=== PATIENT | male | born 1965 | race Caucasian/White ===

== ENCOUNTER 2016-03-09 10:45 | Emergency (ER) | payer BC ==
[2016-03-09 10:55] VITALS: TEMP 96.8
--- NOTE | 2016-03-09 11:00 | ED.PDOC ---
History of Present Illness - General Chief Complaint: Laceration Stated Complaint: laceration Time Seen by Provider: 03/09/16 10:59 Source: patient, RN notes reviewed, Vital Signs reviewed Exam Limitations: no limitations - History of Present Illness Initial Comments: patient stated got up this morning quickly from his bed since right leg is cramping felt a little bit lightheaded fell and head hitting night stand causing laceration to forehead and right elbow abrasion.Denies loss of consciousness,remembers incident,no dizziness no vomiting no blurry vision,felt a little bit dazed. Timing/Duration: this morning Severity: moderate Location: face - forehead, extremities - abrasion right elbow Associated Symptoms: denies symptoms Allergies/Adverse Reactions: Allergies Ampicillin Allergy (Verified 03/09/16 10:55) Home Medications: Ambulatory Orders Carbamazepine 200 mg PO DAILY 03/09/16 Citalopram Hydrobromide 40 mg PO DAILY 03/09/16 Desonide 0.05 % EX BID PRN 03/09/16 Fluticasone Propionate (Nasal) [Fluticasone Propionate] 2 inh NA DAILY 03/09/16 Loratadine 10 mg PO DAILY 03/09/16 Obeticholic Acid [Ocaliva] 5 mg PO DAILY 03/09/16 Olopatadine HCl [Pataday] 1 drop BOTH_EYES DAILY 03/09/16 Tamsulosin [Flomax] 0.4 mg PO QD 03/09/16 Tramadol HCl 50 mg PO PRN PRN 03/09/16 Ursodiol 300 mg PO .NOON AND EVENING 03/09/16 Ursodiol 600 mg PO DAILY 03/09/16 Review of Systems - Review of Systems Constitutional: States: no symptoms reported EENTM: States: no symptoms reported Respiratory: States: no symptoms reported Cardiology: States: no symptoms reported Gastrointestinal/Abdominal: States: no symptoms reported Genitourinary: States: no symptoms reported Musculoskeletal: States: no symptoms reported Skin: States: other - laceration/abrasion Neurological: States: no symptoms reported Endocrine: States: no symptoms reported Hematologic/Lymphatic: States: no symptoms reported Past Medical History (General) - Patient Medical History Hx Other PMH: Yes - bipolar,TANESHA,mild primary sclerosing cholangitis /mild UC,bph Surgical History: cholecystectomy - laparoscopy,prostate/liver biopsy, tonsillectomy - colonoscopy - Vaccination History Hx Tetanus, Diphtheria Vaccination: Yes - given ed Hx Influenza Vaccination: Yes Hx Pneumococcal Vaccination: Yes - Social History Hx Tobacco Use: No Family Medical History - Family History Father Family History: Unknown Living Status: Unknown Hx Family;Other: LYMPHOMA Physical Exam - Physical Exam General Appearance: Alert, Comfortable, No apparent distress Eyes, Ears, Nose, Throat Exam: PERRL/EOMI, normal ENT inspection, TMs normal Neck: non-tender, full range of motion, supple, normal inspection Cardiovascular/Chest: normal peripheral pulses, regular rate, rhythm, no edema Respiratory: chest non-tender, lungs clear, normal breath sounds Gastrointestinal/Abdominal: non tender, soft, no organomegaly Back Exam: normal inspection, no CVA tenderness Extremity: non-tender, normal inspection Neurologic: no motor/sensory deficits, alert, normal mood/affect, oriented x 3, other - GCS-15 Skin Exam: warm/dry, normal color Skin Character: other - 3 cm deep laceration forehead and superficial skin abrasions right elbow Procedures - Laceration/Wound Repair Head Wound's Depth, Shape: into muscle, linear Wound Explored: clean Betadine Prep?: Yes Anesthesia: Lidocaine w/ Epi Volume Anesthetic (cc's): 7 Wound Repaired With: sutures Suture Size/Type: 6:0, 5:0, vicryl rapide, fast absorbing gut Layer Closure?: Yes Deep Layer Suture Size/Type: 5:0, vicryl rapide Number Deep Layer Sutures: 4 Sterile Dressing Applied?: Yes Departure - Departure Clinical Impression: Abrasion, elbow without infection, Fall from bumping against object as cause of accidental injury Laceration of right side of forehead with complication Qualifiers: Encounter type: initial encounter Qualifier Code: (S01.81XA) Laceration without foreign body of other part of head, initial encounter Time of Disposition: 12:07 Disposition: Discharge to Home or Self Care Condition: Good Departure Forms: ED Discharge - Pt. Copy, Patient Portal Self Enrollment Instructions: DI for Closed Head Injury Referrals: Chaz Zhang MD [Primary Care Provider] - 1-2 Weeks Home Medications: Ambulatory Orders Carbamazepine 200 mg PO DAILY 03/09/16 Citalopram Hydrobromide 40 mg PO DAILY 03/09/16 Desonide 0.05 % EX BID PRN 03/09/16 Fluticasone Propionate (Nasal) [Fluticasone Propionate] 2 inh NA DAILY 03/09/16 Loratadine 10 mg PO DAILY 03/09/16 Obeticholic Acid [Ocaliva] 5 mg PO DAILY 03/09/16 Olopatadine HCl [Pataday] 1 drop BOTH_EYES DAILY 03/09/16 Tamsulosin [Flomax] 0.4 mg PO QD 03/09/16 Tramadol HCl 50 mg PO PRN PRN 03/09/16 Ursodiol 300 mg PO .NOON AND EVENING 03/09/16 Ursodiol 600 mg PO DAILY 03/09/16 Additional Instructions: RETURN TO EMERGENCY ROOM NEEDED
[2016-03-09] MEDS ORDERED: LIDOCAINE 2% W/ EPINEPHRINE 20 ML VIAL INJ ONE (11:05)
[2016-03-09] MEDS ORDERED: NEOMYCIN-BACITRACIN-POLYMYXIN 0.9 GM UD TOP ONE (11:11)
[2016-03-09] MEDS ORDERED: TETANUS,DIPHTHERIA,PERTUSSIS 1 EA SYG IM ONE (11:29)
[2016-03-09 12:29] VITALS: BP 129/77; O2SAT 100
== END 2016-03-09 12:27 | disposition home or self-care (01) ==
LOC: ER 10:45
DX: S01.81XA Laceration without foreign body of other part of head, initial encounter (principal); F31.9 Bipolar disorder, unspecified; Z88.3 Allergy status to other anti-infective agents; Z23 Encounter for immunization; Z79.899 Other long term (current) drug therapy; W08.XXXA Fall from other furniture, initial encounter; Y92.003 Bedroom of unspecified non-institutional (private) residence as the place of occurrence of the external cause

== ENCOUNTER 2016-04-03 13:54 | Emergency (ER) | payer BC ==
[2016-04-03 14:17] VITALS: TEMP 98.5
--- NOTE | 2016-04-03 14:28 | ED.PDOC ---
History of Present Illness - General Chief Complaint: GI Problem Stated Complaint: blood in stool Time Seen by Provider: 04/03/16 14:24 - History of Present Illness Allergies/Adverse Reactions: Allergies Ampicillin Allergy (Verified 04/03/16 14:17) Home Medications: Ambulatory Orders Carbamazepine 200 mg PO DAILY 03/09/16 Citalopram Hydrobromide 40 mg PO DAILY 03/09/16 Desonide 0.05 % EX BID PRN 03/09/16 Fluticasone Propionate (Nasal) [Fluticasone Propionate] 2 inh NA DAILY 03/09/16 Loratadine 10 mg PO DAILY 03/09/16 Obeticholic Acid [Ocaliva] 5 mg PO DAILY 03/09/16 Olopatadine HCl [Pataday] 1 drop BOTH_EYES DAILY 03/09/16 Tamsulosin [Flomax] 0.4 mg PO QD 03/09/16 Tramadol HCl 50 mg PO PRN PRN 03/09/16 Ursodiol 300 mg PO .NOON AND EVENING 03/09/16 Ursodiol 600 mg PO DAILY 03/09/16 Past Medical History (General) - Patient Medical History Hx Gastroesophageal Reflux: No - PSC with ulcerative colitis Surgical History: cholecystectomy, tonsillectomy - Vaccination History Hx Tetanus, Diphtheria Vaccination: Yes Hx Influenza Vaccination: Yes Hx Pneumococcal Vaccination: Yes - Social History Hx Tobacco Use: No Hx Alcohol Use: No Hx Substance Use Treatment: No Hx Depression: Yes - Activities of Daily Living Hospice Agency (if applicable):: None - Female History Patient is a Female of Child Bearing Age (10 -59 yrs old): No Patient : No Family Medical History - Family History Father Family History: Unknown Living Status: Unknown Hx Family;Other: LYMPHOMA Progress - Progress Progress: 04/03/16 18:20 HEMATEMESIS, MELENA, EXTENSIVE VARICES PER CT. HGB 7.2. KNOWN H/O PRIMARY SCLEROSING CHOLANGITIS. I SPOKE WITH THE HOSPITALIST HERE WHO TALKED WITH PT'S PCP WHO IS VERY FAMILIAR WITH THE PT'S HX AND THOUGH HE IS CURRENTLY HEMODYNAMICALLY STABLE, HE COULD QUICKLY DECOMPENSATE THUS TO TRANSFER BY HELICOPTER. I SPOKE WITH DR. FELIZ FROM [facility] WHO KINDLY ACCEPTED TRANSFER. Departure - Departure Clinical Impression: Melena, Hematemesis, Gastric varices, Anemia Disposition: Discharge to Home or Self Care Departure Forms: ED Discharge - Pt. Copy, Patient Portal Self Enrollment Home Medications: Ambulatory Orders Carbamazepine 200 mg PO DAILY 03/09/16 Citalopram Hydrobromide 40 mg PO DAILY 03/09/16 Desonide 0.05 % EX BID PRN 03/09/16 Fluticasone Propionate (Nasal) [Fluticasone Propionate] 2 inh NA DAILY 03/09/16 Loratadine 10 mg PO DAILY 03/09/16 Obeticholic Acid [Ocaliva] 5 mg PO DAILY 03/09/16 Olopatadine HCl [Pataday] 1 drop BOTH_EYES DAILY 03/09/16 Tamsulosin [Flomax] 0.4 mg PO QD 03/09/16 Tramadol HCl 50 mg PO PRN PRN 03/09/16 Ursodiol 300 mg PO .NOON AND EVENING 03/09/16 Ursodiol 600 mg PO DAILY 03/09/16 Transfer to Outside Facility - Transfer Information Accepting Provider:: Dr. Feliz Accepting Facility: [facility] Reason for Transfer: required specialist not available
[2016-04-03 18:26] VITALS: BP 110/61; O2SAT 98
--- NOTE | 2016-05-01 23:48 | CT ---
NAME: WILFREDO MORALESPROCEDURE: CT ABDOMEN PELVIS WITHOUT IV CONTRASTORDER DATE: 04/03/2016 3:06 PM CSTACCESSION NUMBER: [id number] Clinical History: HEMATEMESIS, BLACK STOOLS, ANEMIA. Indication: Same as above Comparison: None Technique: CT of the abdomen and pelvis was done without intravenous contrast. Images were obtained from the lung base to the level of the pubic symphysis in axial plane, followed by orthogonal sagittal and coronal reconstruction. Oral contrast was not given for the study. Findings: Images through the lung bases show small right-sided pleural effusion and a small hiatal hernia. The liver is shrunken and nodular in appearance suggestive of underlying cirrhotic changes. There is splenomegaly with the spleen measuring 17 cm in length. There is presence of extensive perihepatic, periportal, pericecal gastric, peripancreatic and perisplenic varices. Varices are also seen in the anterior subcutaneous fat planes of the abdomen and the pelvis. The prostate is mildly enlarged. There is generalized mild mesenteric edema. There is minimal subhepatic ascites. The main portal vein is significantly enlarged and may represent cavernous transformation of the portal vein The pancreas and the bilateral adrenal glands appear unremarkable, given the limitation of lack of intravenous contrast. The gallbladder is surgically absent The bilateral kidneys do not show any evidence of hydronephrosis or nephrolithiasis. The bilateral ureters and the bilateral periureteral soft tissues and fat planes are unremarkable. The urinary bladder is unremarkable, without any evidence of wall thickening, calculi or filling defects. The small bowel appears unremarkable, without any evidence of small bowel obstruction or bowel wall thickening. There is no CT evidence of acute appendicitis, pericecal inflammatory change or ileocecal mesenteric adenitis. The ileocecal junction appears unremarkable. There is no CT evidence of acute colonic diverticulitis or colitis or large bowel obstruction. There is no pathological lymphadenopathy in the retroperitoneum or in the pelvic region. There is no evidence of free air in the abdomen or the pelvic region. There is no clinically significant abdominal aortic aneurysm. There is no clinically significant inguinal or ventral hernia. The visualized lumbar spine shows multilevel degenerative change. The paravertebral soft tissues are unremarkable. The remainder of the pelvic structures are unremarkable. Impression: Images through the lung bases show small right-sided pleural effusion and a small hiatal hernia. The liver is shrunken and nodular in appearance suggestive of underlying cirrhotic changes. There is splenomegaly with the spleen measuring 17 cm in length. There is presence of extensive perihepatic, periportal, pericecal gastric, peripancreatic and perisplenic varices. Varices are also seen in the anterior subcutaneous fat planes of the abdomen and the pelvis. The main portal vein is significantly enlarged and may represent cavernous transformation of the portal vein The prostate is mildly enlarged. There is generalized mild mesenteric edema and minimal subhepatic ascites Location of Interpretation: [facility] Electronically signed by: Deangelo Buckley MD 04/03/2016 3:43 PM DRUM DYEING MACHINE OPERATOR
== END 2016-04-03 19:03 | disposition home or self-care (01) ==
LOC: ER 13:54
DX: I86.4 Gastric varices (principal); K92.1 Melena; D64.9 Anemia, unspecified; K92.0 Hematemesis; F32.9 Major depressive disorder, single episode, unspecified; Z88.3 Allergy status to other anti-infective agents; Z79.899 Other long term (current) drug therapy

== ENCOUNTER 2016-04-15 18:06 | Emergency (ER) | payer BC ==
[2016-04-15 18:24] VITALS: TEMP 98.4
--- NOTE | 2016-04-15 18:25 | ED.PDOC ---
History of Present Illness - General Chief Complaint: Cardiovascular Problem Stated Complaint: swelling in legs and feet Time Seen by Provider: 04/15/16 18:15 Source: patient, RN notes reviewed, Vital Signs reviewed Exam Limitations: no limitations - History of Present Illness Initial Comments: Patient reports that 2 days ago he started with ankle swelling and SOB. Not worsening but not improving. + cough. He was recently hospitalized for esophageal varices with a banding procedure. Denies chest pain. No similar episodes in past. Timing/Duration: constant, other - 2 days Severity: moderate Location: other - SOB/ankle swelling Activities at Onset: none Prior Chest Pain/Cardiac Workup: no prior chest pain Improving Factors: nothing Worsening Factors: nothing Nitro Today/Relief: no nitro taken today Aspirin Treatment Today: no aspirin today Associated Symptoms: cough, shortness of breath Allergies/Adverse Reactions: Allergies Ampicillin Allergy (Verified 04/03/16 14:17) Home Medications: Ambulatory Orders Citalopram Hydrobromide 40 mg PO DAILY 03/09/16 Loratadine 10 mg PO DAILY 03/09/16 Obeticholic Acid [Ocaliva] 5 mg PO DAILY 03/09/16 Olopatadine HCl [Pataday] 1 drop BOTH_EYES DAILY 03/09/16 Tamsulosin [Flomax] 0.4 mg PO QD 03/09/16 Tramadol HCl 50 mg PO PRN PRN 03/09/16 Ursodiol 300 mg PO .NOON AND EVENING 03/09/16 Ursodiol 600 mg PO DAILY 03/09/16 Pantoprazole Sodium [Protonix] 40 mg PO DAILY 04/15/16 Propranolol HCl 20 mg PO BID 04/15/16 Review of Systems - Review of Systems Constitutional: Denies: chills, diaphoresis, fever, malaise, weakness EENTM: States: no symptoms reported Respiratory: States: cough, short of breath. Denies: stridor, wheezing Cardiology: States: edema. Denies: chest pain, palpitations, syncope Gastrointestinal/Abdominal: States: no symptoms reported Genitourinary: States: no symptoms reported Musculoskeletal: States: no symptoms reported Skin: States: no symptoms reported Neurological: States: no symptoms reported Endocrine: States: no symptoms reported Past Medical History (General) - Patient Medical History Hx Gastroesophageal Reflux: No - PSC with ulcerative colitis - Vaccination History Hx Tetanus, Diphtheria Vaccination: Yes Hx Influenza Vaccination: Yes Hx Pneumococcal Vaccination: Yes - Social History Hx Tobacco Use: No Hx Alcohol Use: No Hx Substance Use Treatment: No Hx Depression: Yes - Female History Patient : No Family Medical History - Family History Father Family History: Unknown Living Status: Unknown Hx Family;Other: LYMPHOMA Physical Exam - Physical Exam General Appearance: Alert, Comfortable, No apparent distress, Well Developed, Well Groomed, Well Hydrated, Well Nourished Neck: non-tender, full range of motion, supple, normal inspection Respiratory: no respiratory distress, no accessory muscle use, decreased breath sounds - Right lung Cardiovascular/Chest: regular rate, rhythm, no gallop, no JVD, no murmur, other - 2+ pitting edema Bilateral LE Peripheral Pulses: dorsalis pedis,right: 2+, dorsalis pedis,left: 2+ Gastrointestinal/Abdominal: distended Extremity: normal range of motion, non-tender, pedal edema Neurologic: no motor/sensory deficits, alert, normal mood/affect, oriented x 3 Skin Exam: normal color, warm/dry Lymphatic: no adenopathy Progress - Progress Progress: 04/15/16 20:47 Discussed lab and radiology results with patient. Discussed that lower extremity edema is most likely due to his chronic liver disease. No cause for his SOB found. Recommended Elevating legs - if not improving in 2 weeks or if worsening follow up with PCP. - Results/Orders Results/Orders: Laboratory Tests 04/15/16 18:45 WBC 3.5 L RBC 3.26 L Hgb 9.4 L Hct 28.8 L MCV 88.6 MCH 28.8 MCHC 32.7 L RDW 15.0 H Plt Count 113 L MPV 9.5 Absolute Neuts (auto) 2.30 Absolute Lymphs (auto) 0.90 L Absolute Monos (auto) 0.30 Absolute Eos (auto) 0.00 Absolute Basos (auto) 0.00 Neutrophils % 64.9 Lymphocytes % 26.0 Monocytes % 7.5 Eosinophils % 1.1 Basophils % 0.5 D-Dimer, Quantitative 401 H* Sodium 139 Potassium 4.0 Chloride 109 Carbon Dioxide 28 Anion Gap 6.0 L BUN 11 Creatinine 0.57 L BUN/Creatinine Ratio 19.3 Random Glucose 108 H Serum Osmolality 277.5 Calcium 8.2 L Total Bilirubin 1.8 H AST 90 H ALT 98 H Alkaline Phosphatase 456 H Creatine Kinase 60 Serum Total Protein 6.4 Albumin 2.5 L Globulin 3.9 H Albumin/Globulin Ratio 0.6 L Labs either improved or unchanged from prior visit. - EKG/XRAY/CT EKG: Sinus, no ST T wave changes Comments: Normal EKG, Rate 65 CT Ordered: Yes - CTA Chest - R/O PE CT Interpretation Call Back: - No evidence of PE per radiology Departure - Departure Clinical Impression: Edema extremities, Cirrhosis of liver, Ascites Time of Disposition: 20:49 Disposition: Discharge to Home or Self Care Condition: Good Departure Forms: ED Discharge - Pt. Copy, Patient Portal Self Enrollment Diet: resume usual diet Activity: increase activity as tolerated Home Medications: Ambulatory Orders Citalopram Hydrobromide 40 mg PO DAILY 03/09/16 Loratadine 10 mg PO DAILY 03/09/16 Obeticholic Acid [Ocaliva] 5 mg PO DAILY 03/09/16 Olopatadine HCl [Pataday] 1 drop BOTH_EYES DAILY 03/09/16 Tamsulosin [Flomax] 0.4 mg PO QD 03/09/16 Tramadol HCl 50 mg PO PRN PRN 03/09/16 Ursodiol 300 mg PO .NOON AND EVENING 03/09/16 Ursodiol 600 mg PO DAILY 03/09/16 Pantoprazole Sodium [Protonix] 40 mg PO DAILY 04/15/16 Propranolol HCl 20 mg PO BID 04/15/16
[2016-04-15 20:56] VITALS: BP 122/70; O2SAT 98
--- NOTE | 2016-04-27 13:44 | CT ---
EXAM: CT CHEST ANGIOGRAPHY WITH IV CONTRAST HISTORY: SOB with elevated D-Dimer/ R/O PE COMPARISON: None Available TECHNIQUE: Contiguous axial images of the chest were obtained from the thoracic inlet to the level of the upper abdomen after the administration of intravenous contrast followed by reconstruction images. Volume rendering images were performed. FINDINGS: The aorta is of normal contour and tapering. There is no discrete filling defect within the pulmonary arterial system to suggest pulmonary emboli. There is no pericardial or pleural fluid collection. There is a bulla within the right lung. Increased opacity within the dependent portion of the lungs may represent atelectasis. There are bilateral pleural fluid collections, right greater than left. There is a small amount of fluid within the superior pericardial recess. The right hepatic parenchyma is nodular in contour and small in size compatible with cirrhosis. There is free fluid in the upper abdomen. The spleen is enlarged measuring approximately 17.1 cm compatible with portal hypertension. There is no pneumothorax. IMPRESSION: No CT evidence of acute pulmonary emboli. Findings compatible with cirrhosis with portal hypertension. Ascites. Bilateral small pleural fluid collections. Increased opacity in the dependent portion of the lungs compatible atelectasis. Electronically signed by: Juan Mcarthur MD 04/15/2016 8:25 PM BIOPROCESSING MANUFACTURING TECHNICIAN
--- NOTE | 2016-05-02 08:55 | RAD ---
EXAM DESCRIPTION: Chest,2 Views CLINICAL HISTORY: 50 years Male SOB Edema COMPARISON: CT abdomen and pelvis study from 03/26/2016. FINDINGS: There is a small right pleural effusion. Small right pleural effusion is also visualized on the previous CT abdomen and pelvis study. The lungs otherwise appear clear. No pneumothorax. The cardiomediastinal silhouette appears unremarkable. Degenerative changes in the spine. IMPRESSION: Small right pleural effusion which appears similar compared to the previous CT abdomen and pelvis study. Electronically signed by: David Tran MD 04/15/2016 6:42 PM ENVIRONMENTAL ANALYST
== END 2016-04-15 20:57 | disposition home or self-care (01) ==
LOC: ER 18:06
DX: R18.8 Other ascites (principal); K74.60 Unspecified cirrhosis of liver; F32.9 Major depressive disorder, single episode, unspecified; Z88.3 Allergy status to other anti-infective agents; Z79.899 Other long term (current) drug therapy

== ENCOUNTER → 2016-05-09 | Outpatient (CLI) | payer BC | END | disposition home or self-care (01) | LOC: GMAJ 10:27 | PROVIDERS: ATTEND Family Medicine | DX: K74.69 Other cirrhosis of liver (principal) ==

== ENCOUNTER → 2016-07-06 | Outpatient (CLI) | payer BC | LOC: LAB.O 14:24 | PROVIDERS: ATTEND Urology | DX: R97.20 Elevated prostate specific antigen [PSA] (principal) ==

== ENCOUNTER 2016-10-12 00:29 | Inpatient (IN) | payer BC ==
--- NOTE | 2016-10-12 00:44 | ED.PDOC ---
History of Present Illness - General Chief Complaint: Neuro Symptoms/Deficits Stated Complaint: confusion, fever Time Seen by Provider: 10/12/16 00:38 Source: patient Exam Limitations: clinical condition Additional Information: PT BROUGHT IN BY EMS. APPARENTLY MOM CALLED FROM [place] B/C SHE COULD NOT REACH PT. PD FOUND PT SITTING ON HIS FRONT PORCH CONFUSED. EMS CALLED AND TRANSPORTED PT HERE. HAS CONFUSION AND FEVER. MOM LASTED TALKED TO PT MONDAY WAS REPORTEDLY HAVING DIARRHEA. - History of Present Illness Timing/Duration: unsure Severity: moderate Associated Symptoms: other - HISTORY AND ROS IS OTHERWISE UNRELIABLE. PMHX OBTAINED FROM OLD RECORDS AND MEDS. Allergies/Adverse Reactions: Allergies Ampicillin Allergy (Verified 04/03/16 14:17) Home Medications: Ambulatory Orders Obeticholic Acid [Ocaliva] 5 mg PO DAILY 03/09/16 Olopatadine HCl [Pataday] 1 drop BOTH_EYES DAILY 03/09/16 RX: Citalopram Hydrobromide 40 mg PO DAILY 03/09/16 RX: Loratadine 10 mg PO DAILY 03/09/16 RX: Tramadol HCl 50 mg PO PRN PRN 03/09/16 RX: Ursodiol 300 mg PO .NOON AND EVENING 03/09/16 RX: Ursodiol 600 mg PO DAILY 03/09/16 Tamsulosin [Flomax] 0.4 mg PO QD 03/09/16 Pantoprazole Tablet [Protonix] 40 mg PO DAILY 04/15/16 RX: Propranolol HCl 20 mg PO BID 04/15/16 Carbamazepine ER [Carbatrol] 200 mg PO 10/12/16 RX: Citalopram Hydrobromide 40 mg PO 10/12/16 RX: Sertraline HCl 50 mg PO 10/12/16 Review of Systems - Review of Systems Unable to Obtain Due To: clinical condition Past Medical History (General) - Patient Medical History Hx Hypertension: Yes Hx Gastroesophageal Reflux: No - PSC with ulcerative colitis ?END STAGE LIVER DZ - Vaccination History Hx Tetanus, Diphtheria Vaccination: Yes Hx Influenza Vaccination: Yes Hx Pneumococcal Vaccination: Yes - Social History Hx Tobacco Use: No Hx Alcohol Use: No Hx Substance Use Treatment: No Hx Depression: Yes - Female History Patient : No Family Medical History - Family History Father Family History: Unknown Living Status: Unknown Hx Family;Other: LYMPHOMA Physical Exam - Physical Exam General Appearance: Alert, Other - CONFUSED Eye Exam: bilateral scleral icterus, bilateral other - PERRLA EOMI Ears, Nose, Throat: hearing grossly normal, normal ENT inspection, other - DRY MUCOUS MEMBRANES Neck: non-tender, full range of motion, supple Respiratory: lungs clear, normal breath sounds, no respiratory distress Cardiovascular/Chest: no murmur, tachycardia Gastrointestinal/Abdominal: soft, no organomegaly, other - DIFFUSELY TTP WITH MOD RUQ TTP. NO HSM, HYPOACTIVE BS. Back Exam: normal inspection, no CVA tenderness, no vertebral tenderness Extremity: normal range of motion, normal inspection, no pedal edema Neurologic: no motor/sensory deficits, alert, other - ORIENTED X 1 (PERSON ONLY) Skin Exam: diaphoresis, rash - HOT TO TOUCH Lymphatic: no adenopathy Progress - Progress Progress: 10/12/16 01:26 WAS ABLE TO REVIEW RECORDS FROM [facility] FROM 03/22. WAS ADMITTED FOR ESOPHAGEAL VARICIES WITH BLEEDING. RECORDS DOCUMENT PRIMARY SCLEROSING CHOLANGITIS. ULCERATIVE CHOLITIS, BIPOLAR D/O, AND BPH. LAB, 04/06/16 WBC 2.6, HGB 8.3, PLT 90, 04/04/16 WBC 2.1 HGB 7.9, PLT 81 NA 135, K 3.4, CL 108, CO2 22, GLU 84, BUN/CR 11/.53, LFT'S 04/03/16, AST 212, ALT 190, TBILI 1.6, ALK PHOS 333 10/12/16 02:56 PT WITH RLL PNEUMONIA AND SEPSIS, D/W [facility] TRANSFER LINE THEY ARE CURRENTLY FULL RECOMMEND WE HOLD HERE UNTIL THEY GET A BED. WILL START ROCEPHIN AND ZITHROMAX AND D/W HOSPITALIST. 10/12/16 03:00 D/W DR MONTANEZ AGREES TO ADMIT PT HERE. - EKG/XRAY/CT XRAY: chest - RLL PNEUMONIA CT Ordered: Yes - NEG PER RADIOLOGY Departure - Departure Clinical Impression: Shock Pneumonia Qualifiers: Pneumonia type: due to Pneumococcus Laterality: right Lung location: lower lobe of lung Qualified Code(s): J13 - Pneumonia due to Streptococcus pneumoniae Sepsis Qualifiers: Sepsis type: Pneumococcus Qualified Code(s): A40.3 - Sepsis due to Streptococcus pneumoniae Time of Disposition: 03:00 Disposition: Admit Patient Condition: Fair Departure Forms: ED Discharge - Pt. Copy, Patient Portal Self Enrollment Referrals: Chaz Zhang MD [Primary Care Provider] - 1-2 Weeks Home Medications: Ambulatory Orders Obeticholic Acid [Ocaliva] 5 mg PO DAILY 03/09/16 Olopatadine HCl [Pataday] 1 drop BOTH_EYES DAILY 03/09/16 RX: Citalopram Hydrobromide 40 mg PO DAILY 03/09/16 RX: Loratadine 10 mg PO DAILY 03/09/16 RX: Tramadol HCl 50 mg PO PRN PRN 03/09/16 RX: Ursodiol 300 mg PO .NOON AND EVENING 03/09/16 RX: Ursodiol 600 mg PO DAILY 03/09/16 Tamsulosin [Flomax] 0.4 mg PO QD 03/09/16 Pantoprazole Tablet [Protonix] 40 mg PO DAILY 04/15/16 RX: Propranolol HCl 20 mg PO BID 04/15/16 Carbamazepine ER [Carbatrol] 200 mg PO 10/12/16 RX: Citalopram Hydrobromide 40 mg PO 10/12/16 RX: Sertraline HCl 50 mg PO 10/12/16
[2016-10-12] MEDS ORDERED: SODIUM CHLORIDE 0.9% 1000ML 1,000 ML IVS ONE ×3 (00:55→16:06)
--- NOTE | 2016-10-12 01:15 | CT ---
EXAM: CT head without contrast. INDICATION: AMS. TECHNIQUE: Contiguous axial CT images of the brain. Intravenous contrast: Absent. DLP 773 mGy-cm. This exam was performed according to our departmental dose-optimization program, which includes automated exposure control, adjustment of the mA and/or kV according to patient size and/or use of iterative reconstruction technique. COMPARISON: None. FINDINGS: Subcutaneous: Unremarkable. No acute intracranial hemorrhage. No midline shift. No mass effect. Ventricles: No hydrocephalus. Suarez-white differentiation preserved. Paranasal sinuses/mastoid air cells: Visualized portions are aerated. Bones/orbits: Visualized portions are unremarkable. IMPRESSION: 1. No CT evidence of acute intracranial hemorrhage. Electronically signed by: Yoshi Caballero MD 10/12/2016 1:14 AM CDT Workstation: [id number]
--- NOTE | 2016-10-12 01:22 | RAD ---
EXAM: Single view chest. INDICATION: Fever. COMPARISON: Chest x-ray: 04/15/2016. FINDINGS: There is a right basilar airspace opacities or pleural effusion. The left lung is clear. The heart is normal in size. There is no pneumothorax. There is no acute fracture. IMPRESSION: Right basilar airspace opacity with right pleural effusion Electronically signed by: Yoshi Caballero MD 10/12/2016 1:21 AM CDT Workstation: [id number]
[2016-10-12] MEDS ORDERED: cefTRIAXone SODIUM 1 GM in SODIUM CHL 0.9% 50ML MIN-BAG+ 50 ML IVPB ONE (02:48)
[2016-10-12] MEDS ORDERED: AZITHROMYCIN IV 500 MG in SODIUM CHLORIDE 0.9% 250ML 250 ML IVPB ONE (02:48)
[2016-10-12] MEDS ORDERED: AZITHROMYCIN IV 500 MG VIAL IVPB ONE (02:51)
[2016-10-12] MEDS ORDERED: cefTRIAXone SODIUM 1 GM VIAL ONE ×2 (02:51→07:33)
[2016-10-12] MEDS ORDERED: SODIUM CHLORIDE 0.9% 250ML 250 ML ONE (02:52)
[2016-10-12] MEDS ORDERED: SODIUM CHL 0.9% 50ML MIN-BAG+ 50 ML IVPB ONE ×4 (02:52→20:27)
[2016-10-12] MEDS ORDERED: SODIUM CHLORIDE 0.9% 1000ML 1,000 ML ONE (03:10)
[2016-10-12] MEDS ORDERED: LEVALBUTEROL NEBS 1.25 MG/3 ML VIAL NEB PRN (03:44)
[2016-10-12] MEDS ORDERED: ONDANSETRON INJ 4 MG/2 ML VIAL IV PRN (03:44)
[2016-10-12] MEDS ORDERED: MAGNESIUM HYDROXIDE 30 ML UD PO PRN (03:44)
--- NOTE | 2016-10-12 03:53 | HP ---
SUPERVISING PHYSICIAN: Chaz Zhang MD CHIEF COMPLAINT: Confusion, fever. HISTORY OF PRESENT ILLNESS: Mr. Camacho is a 51-year-old, male patient who was brought to the Emergency Department via EMS. The patient was found to be confused at home after his mother had called and could not reach the patient as she was out of town. Ambulance was called and on arrival to the patient's house, the patient was noted to be confused and have shortness of breath . He was transported to the Emergency Room where he was noted to be having confusion with an elevated temperature initially with 102.2 temperature on arrival. It was noted in the Emergency Room record that his mother had last talked to the patient this past Monday and he was reportedly having some diarrhea at that time. Laboratory studies in the Emergency Department showed that he had normal white count of 10.3 with a notable left shift. Radiographic studies included a chest x-ray and per radiologic interpretation showed right basilar airspace opacity with pleural effusion. He also had a CT of the head for evaluation of his confusion and per radiologic interpretation there was no CT evidence of acute intracranial hemorrhage. 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 Chemistries in the Emergency Department showed his total bilirubin t be 4.5, lactic acid was 2.4. Dr. Feliz , ER physician, attempted to transfer the patient for developing left lower lobe pneumonia with sepsis complicated by endstage liver disease to [facility] as he is followed by Dr. Birch. However, at the point of contact this morning, [facility] had no beds available. Recommendations were to hold the patient in the Emergency Room or admit to the Hospital and wait until a bed was available at [facility]. The patient was then at that point admitted to the Medical/Surgical Floor for continuation of treatment. Blood cultures were collected. He was initiated on antibiotic therapy to include Rocephin and azithromycin. PAST MEDICAL HISTORY: 1. Autoimmune primary sclerosing cholangitis. 2. Ulcerative colitis. 3. History of past esophageal varices requiring banding in June of 2016. 4. Gastroesophageal reflux disease on Protonix. 5. Benign prostatic hypertrophy. PAST SURGICAL HISTORY: 1. Cholecystectomy. 2. Tonsillectomy. 3. Laryngeal cord nodule removal. 4. Biopsy of prostate in 2009, benign. 5. Multiple liver biopsies. 6. Colonoscopies with last colonoscopy noted per record review to be 05/19/16. 7. EGD with esophageal varices and banding on 07/11/16. HOME MEDICATIONS: 1. Sertraline 50 mg daily. 2. Tramadol 1 to 2 mg q.12h. p.r.n. 3. Protonix 40 mg at breakfast. 4. Pataday 1 drop both eyes. 5. Propranolol 20 mg twice daily. 6. Carbatrol 200 mg daily. 7. Ursodiol 300 mg 3 times daily. 8. Flomax 0.4 mg. 9. Ocaliva 5 mg weekly. 10. Citalopram 40 mg daily. ALLERGIES: AMPICILLIN. FAMILY HISTORY: Father is from lymphoma. Mother has history of depression. SOCIAL HISTORY: He lives in [place]. 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 He is a nonsmoker and has no history of alcohol usage. REVIEW OF SYSTEMS: CONSTITUTIONAL: Notes some general malaise, fever. HEENT: No nasal congestion, sore throat. RESPIRATORY: As noted in history of present illness, shortness of breath. CARDIOVASCULAR: Denies chest pain or palpitations. Denies syncopal episodes. GASTROINTESTINAL: As noted in history of present illness, abdominal pain with some diarrhea the past weekend. NEUROLOGIC: As noted in history of present illness, confusion. PHYSICAL EXAMINATION: VITAL SIGNS: On admission to the Emergency Department, blood pressure 121/61. Heart rate 108. Temperature 102.7. O2 saturation 98% on room air. Admission weight 83.0 kg. GENERAL: The patient is alert on exam on Medical/Surgical Floor. He appears to be comfortable and in no acute distress. HEENT: Bilateral scleral icterus. Tympanic membranes clear bilaterally. Oropharynx is pink. Mucous membranes dry. NECK: Nontender, full range of motion. No jugular venous distention noted. CHEST: Lungs clear to auscultation, diminished towards the right base. No rhonchi, wheezes, or rales. CARDIOVASCULAR: Regular rate and rhythm without any appreciable murmurs, gallops, or rubs. Noted tachycardia on bedside monitor. ABDOMEN: Mildly distended, but soft with diffuse tenderness to palpation with notable right upper quadrant tenderness. Hypoactive bowel sounds. BACK: Normal to inspection with no CVA tenderness. EXTREMITIES: There is no cyanosis, clubbing or edema. NEUROLOGIC: The patient is alert and oriented times three. Facial features are symmetrical. Extraocular movements are within normal limits. There is no nystagmus noted. No notable sensory or motor deficits. LABORATORY: CBC showed white count 10, hemoglobin 10.3, hematocrit 31.5, platelet count 16,000, differential did show left shift. Coagulation studies showed elevated PT of 18.7, PT-T 31.3. Chemistries initially showed sodium 133 with potassium 3.8. BUN 13, creatinine 0.8. Glucose 103. Initial lactic acid 2.4. Repeat in 6 hours after fluids, lactic acid 1.9. Initial bilirubin was 4.5, calcium initially 8.2, albumin 2.5, ammonia 34, lipase 58. Urinalysis showed trace lysed blood. Otherwise, within normal limits. MICROBIOLOGY: Blood cultures times 2 pending. RADIOLOGY: Chest x-ray in the Emergency Department per radiologic interpretation, single view chest, showed right basilar airspace opacity with right pleural effusion. Head CT without contrast in the Emergency Department per radiologic interpretation showed no acute intracranial hemorrhage. ASSESSMENT: 1. Right lower lobe pneumonia, community acquired. 2. Sepsis secondary to #1. 3. History of primary autoimmune sclerosing cholangitis with endstage liver disease. 4. Benign prostatic hypertrophy. PLAN: The patient will be admitted to the Medical/Surgical Floor with consultation with Dr. Starks, swatch cutter. Attempts were made for transfer initially in the Emergency Room, however, [facility] was full and had no ICU beds available. The patient will be continued on antibiotics that were started in the Emergency Department after blood cultures were completed to include Rocephin and azithromycin. He was given 2 liters of fluid initially. We will continue with normal saline with 20meq of potassium at 100 per hour and will monitor output closely. We will start him on bronchial hygiene including albuterol nebulizer treatments, utilize oxygen and BiPAP as needed to maintain his O2 saturations of 92% to 94%. We will continue to work with [facility] in attempts to possibly transfer the patient after Dr. Starks has adequate time to see the patient in consultation. We will anticipate length of stay to be possibly 2 to 3 days or less depending on need for transfer and availability of beds at [facility]. His primary physician is Dr. Zhang. He has been followed by Dr. Birch. I have requested records from the clinic for review. Until discharge, we will continue to monitor the patient closely and treat appropriately. #[id number] [facility]
[2016-10-12] MEDS ORDERED: IV SET AND CAP CHANGE INJ INJ SCH (04:00)
[2016-10-12] MEDS ORDERED: traMADol HCL 50 MG TAB PO PRN (04:08)
[2016-10-12] MEDS: ALBUTEROL SULFATE 2.5 MG/3 ML VIAL NEB SCH ×5 (04:31→19:50)
[2016-10-12] MEDS: KCL 20 MEQ/NS 1,000 ML IVS PRN ×2 (04:31→18:33)
[2016-10-12] MEDS ORDERED: IPRATROPIUM/ALBUTEROL 3 ML VIAL NEB ONE ×2 (04:38→07:48)
[2016-10-12] MEDS: PROPRANOLOL HCL 20 MG TAB PO SCH ×2 (10:31→20:56)
--- NOTE | 2016-10-12 13:28 | CONS ---
DATE OF CONSULTATION: 10/12/16 REFERRING PHYSICIAN: Maurizio Smith MD REASON FOR CONSULTATION: Cirrhosis. HISTORY OF PRESENT ILLNESS: Mr. Camacho is a 51-year-old gentleman I am asked to see by Dr. Smith. The patient was found yesterday at home confused. He was brought into the hospital here in [place] and found to have a right lower lobe pneumonia. They started treating him for the pneumonia and his sensorium has cleared this morning. The patient reports that he has been short of breath since Monday and then it progressed and it has improved since he started his treatment here in the hospital. He denies ever having an issue with confusion before. He has known about his liver for the past 8 or 9 years. He moved to [place] from [place] about 4 or 5 years ago and began seeing Dr. Birch then. 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 He has primary sclerosing cholangitis with a primary biliary cholangitis component. He sees Dr. Chris Galaviz in [place]. He is maintained on Ursodiol and is also on some study medicine right now. I am not sure what that is. The patient's liver disease otherwise seems stable. He is not having any bleeding or swelling. PAST MEDICAL HISTORY: 1. Autoimmune cholangitis issue with PSC/PBC component. 2. History of ulcerative colitis. He last underwent colonoscopy in 05/20. 3. Portal hypertension from the cirrhosis. 4. Varices and has undergone banding, the last in 07/20. 5. Prostate hypertrophy. 6. Bipolar disorder. PAST SURGICAL HISTORY: 1. Cholecystectomy. 2. Nodule from his vocal cord removed. 3. Tonsillectomy. MEDICATIONS: 1. Protonix. 2. Tamsulosin. 3. Ursodiol. 4. Fluticasone. 5. Propranolol. 6. Desonide cream. 7. Loratadine for allergies. ALLERGIES: AMPICILLIN. FAMILY HISTORY: No family history of liver disease. His father with lymphoma. His mother has no liver disease or cancer. SOCIAL HISTORY: He denies alcohol or tobacco use. REVIEW OF SYSTEMS: Ten-point review of systems was obtained and is unremarkable other than what is in the history of present illness. PHYSICAL EXAMINATION: GENERAL: He is an alert, oriented gentleman in no distress. HEENT: Mild scleral icterus. No oral lesions. NECK: Without jugular venous distention, lymphadenopathy or thyromegaly. LUNGS: Rhonchi in the right base. No rales, no wheezes heard throughout. HEART: Regular S1, S2 without murmur. ABDOMEN: Soft, nontender. No masses. No distention. Bowel sounds normoactive. EXTREMITIES: No edema. SKIN: Warm and dry without lesions. LABORATORY AND STUDIES: Laboratories and studies are reviewed. He has evidence of a right sided pneumonia. Labs show tobacco 4.5, direct bilirubin 2.3, AST 144, ALT 96, alkaline phosphatase 185. Lactic acid was elevated yesterday. It is in normal range now. Ammonia was in the normal range. Blood cultures are all pending. The rest of his labs are viewed. White blood cell count normal. Platelet count 68. Hemoglobin 10.3. INR 1.6. IMPRESSION/RECOMMENDATION: 1. Community acquired pneumonia. He is on appropriate broad spectrum at this point and seems to be responding to therapy. 2. 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 I think he is stable from a liver standpoint and I do not believe his liver disease is the reason for his problem. I do not recommend treatment with Lactulose at this point because his sensorium has cleared. However, if he does get confused again, I would try Lactulose. 3. I would continue his Ursodiol and the study drug for now. However, I have told the patient to call Dr. Galaviz, equipment maint tech in [place], and informed him of his hospitalization with pneumonia. That might affect the study and whether or not the patient remains on the medication. 4. The patient does need to keep routine followup with Dr. Birch and with Dr. Galaviz as previously scheduled. cc: MD Juan Carlos Sewell MD [facility]
[2016-10-12] MEDS: cefTRIAXone SODIUM 1 GM in SODIUM CHL 0.9% 50ML MIN-BAG+ 50 ML IVPB SCH (14:49)
[2016-10-12] MEDS ORDERED: MEROPENEM 1 GM VIAL IVPB ONE ×2 (16:16→20:28)
[2016-10-12] MEDS: TAMSULOSIN 0.4 MG CAP PO SCH (16:17)
[2016-10-12] MEDS: URSODIOL 300 MG CAP PO SCH (16:18)
[2016-10-12] MEDS: MEROPENEM 1 GM in SODIUM CHL 0.9% 50ML MIN-BAG+ 50 ML IVPB SCH (16:18)
[2016-10-12] MEDS: ALPRAZolam 0.25 MG TAB PO PRN (22:01)
[2016-10-13] MEDS: MEROPENEM 1 GM in SODIUM CHL 0.9% 50ML MIN-BAG+ 50 ML IVPB SCH ×3 (00:31→17:12)
[2016-10-13] MEDS ORDERED: SODIUM CHLORIDE 0.9% 250ML 250 ML ONE ×2 (01:04→23:21)
[2016-10-13] MEDS ORDERED: AZITHROMYCIN IV 500 MG VIAL IVPB ONE ×2 (01:05→23:22)
[2016-10-13] MEDS: AZITHROMYCIN IV 500 MG in SODIUM CHLORIDE 0.9% 250ML 250 ML IVPB SCH (01:41)
[2016-10-13] MEDS ORDERED: SODIUM CHL 0.9% 50ML MIN-BAG+ 50 ML IVPB ONE ×5 (02:56→23:22)
[2016-10-13] MEDS ORDERED: cefTRIAXone SODIUM 1 GM VIAL ONE ×3 (02:56→23:22)
[2016-10-13] MEDS: cefTRIAXone SODIUM 1 GM in SODIUM CHL 0.9% 50ML MIN-BAG+ 50 ML IVPB SCH ×2 (03:00→13:33)
[2016-10-13] MEDS: KCL 20 MEQ/NS 1,000 ML IVS PRN (04:39)
--- NOTE | 2016-10-13 06:57 | RAD ---
Clinical History : Pneumonia , MAIN Exam : Portable AP view of the chest 10/13/2016 7:00 AM CDT Comparisons : Portable AP view of the chest October 12, 2016 Findings : There is a stable large right pleural effusion with atelectasis of greater than 50% of the right lung volume. The left lung remains largely clear. The heart is stable in size. The mediastinal contours are normal in appearance. The thoracic spine is age appropriate. The shoulders are unremarkable. Limited evaluation of the upper abdomen demonstrates no gross abnormalities. Impression: Stable large right pleural effusion with subtotal right lung atelectasis/airspace disease Electronically signed by: Roosevelt Robles MD 10/13/2016 6:56 AM CDT
[2016-10-13] MEDS ORDERED: PANTOPRAZOLE SODIUM TAB 40 MG PO SCH (07:00)
[2016-10-13] MEDS ORDERED: CITALOPRAM HBR 20 MG TAB ONE (07:20)
[2016-10-13] MEDS ORDERED: carBAMazepine 200 MG TAB ONE ×2 (07:21→08:32)
[2016-10-13] MEDS ORDERED: MEROPENEM 1 GM VIAL IVPB ONE ×3 (07:21→23:22)
[2016-10-13] MEDS ORDERED: SODIUM CHLORIDE 0.9% 50ML 50 ML ONE (07:22)
[2016-10-13] MEDS: ALBUTEROL SULFATE 2.5 MG/3 ML VIAL NEB SCH ×4 (07:59→20:19)
[2016-10-13] MEDS: CITALOPRAM HBR 20 MG TAB PO SCH (08:07)
[2016-10-13] MEDS: URSODIOL 300 MG CAP PO SCH ×3 (08:08→17:12)
[2016-10-13] MEDS: SERTRALINE HCL 50 MG TAB PO SCH (08:08)
[2016-10-13] MEDS: PROPRANOLOL HCL 20 MG TAB PO SCH ×2 (08:09→20:12)
[2016-10-13] MEDS: TAMSULOSIN 0.4 MG CAP PO SCH (08:09)
[2016-10-13] MEDS: CARBAMAZEPINE 200 MG PO SCH (08:54)
[2016-10-13] MEDS: OLOPATADINE 0.1% OPHTH SOL 1 DROP BOTH_EYES SCH (08:56)
[2016-10-13] MEDS: SODIUM CHLORIDE 0.9% (FLUSH) 10 ML SYG IV SCH ×2 (10:32→20:13)
[2016-10-13] MEDS: FUROSEMIDE INJ 100 MG/10 ML VIAL IV SCH (10:38)
[2016-10-13] MEDS ORDERED: POTASSIUM CHLORIDE 20 MEQ TAB PO ONE (12:28)
--- NOTE | 2016-10-13 15:51 | PN ---
DATE: 10/13/16 SUPERVISING PHYSICIAN: Chaz Zhang M.D. SUBJECTIVE: The patient has been afebrile now for 48 hours. I was notified that his blood cultures were positive for gram-negative rods. Preliminary review of the plates appear to be a possible Klebsiella species. The patient had an elevated lactic acid yesterday afternoon and was given fluid resuscitation again with a repeat lactic acid that showed to be within normal limits post 6 hour treatment initiation. He was also started on Meropenem given the elevated lactic acid and new findings of the gram negative bacteremia. This morning, the patient is alert but showing some mild respiratory distress. Review of his chest x-ray shows an enlarging right sided pleural effusion. OBJECTIVE: VITAL SIGNS: T max 98.8, pulse 83, blood pressure 106/68, respirations 12 to 24. I's and O's did show a positive balance of 3633 today with 4933 in, 1300 out. Weight has shown an increase from 87.7 kg to 89.3 kg in the last 24 hours. CHEST: Lung sounds are diminished on the right with no obvious wheezing. Left lung sounds are clear with good breath sounds, just slightly diminished towards the base. HEART: regular rate and rhythm. ABDOMEN : A little more distended today and firm compared to previous with positive bowel sounds. EXTREMITIES: 1+ edema bilaterally. NEUROLOGIC: He is alert and oriented times three. LABORATORY: White count 5.0, hemoglobin improved to 10.0, hematocrit 31.2 with platelet count improving to 61,000. Differential is now showing to be without a left shift. Chemistries show mild hyponatremia with sodium 134, potassium 4.1 , CO2 of 19, creatinine 0.58 with BUN 14, serum osmolality 268. Lactic acid yesterday afternoon around 3:00 that was 2.7, post treatment repeat was 1.8. Total bilirubin is down to 3.4, AST is up to 142, ALT as well is up to 101 with alkaline phosphatase showing to be improved somewhat, it is down to 139. Albumin 2.1, calcium 7.6, corrected for the low albumin to 9.1. MICROBIOLOGY: Both sets of blood cultures show to be positive with gram- negative rods with final identification and sensitivity pending. RADIOLOGY: Repeat chest x-ray two view this morning per radiology interpretation shows a stable large right pleural effusion with a subtotal right lung atelectasis/airspace disease. ASSESSMENT: 1. Right lower lobe pneumonia, community acquired with a gram negative bacteremia with sputum cultures pending. 2. Metabolic Encephalopathy due to sepsis secondary to #1 and gram negative bacteremia showing improvement with IV fluids and antibiotics 3. Respiratory Alkalosis due to Increasing right sided pleural effusion secondary to underlying cirrhosis and aggressive fluid resuscitation. 4. 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 5. Benign prostatic hypertrophy. PLAN: Will plan to diurese the patient today in efforts to get a better fluid management balance. Will give him 60 of Lasix. Will also start him on BiPAP once we obtain a set of ABGs to assist with his respiratory effort. Will utilize Xanax as needed for any anxiety. I will plan to repeat a Lactic acid as well to ensure that he is not becoming more metabolic acidotic given that he is showing increased respiratory effort. I did start him on Meropenem yesterday for the gram negative bacteremia. Will continue with Rocephin and Azithromycin as well for completion of treatment until we have full identification of the gram-negative rods identified in his blood cultures. He does have a sputum pending. Will await that culture result. Will closely monitor his I's and O's and weight. Will plan to repeat laboratory studies in the morning. He was seen in consultation by Dr. Starks. Please refer to his consultation report for full details. He recommends Lactulose if the patient starts showing any confusion. Will plan to saline lock him today in efforts to further help with management of his ongoing cirrhosis and fluid balance as well as start him on a low sodium diet. The patient is still quite fragile medically. Anticipate at least another 48 hours with continued treatment and close monitoring. Anticipation of need of at least 14 day or more course of antibiotics based off culture and sensitivities for treatment of underlying bacteremia. Once we have the culture results back, I will discuss the case with Dr. Abebe, Infectious Disease, in efforts to better manage the antibiotic therapy. Until discharge, will continue to monitor the patient closely and treat appropriately. #[id number] [facility]
[2016-10-13] MEDS: BIFIDOBACTERIUM INFANTIS 4 MG CAP PO SCH (20:12)
[2016-10-14] MEDS: MEROPENEM 1 GM in SODIUM CHL 0.9% 50ML MIN-BAG+ 50 ML IVPB SCH ×2 (00:10→08:49)
[2016-10-14] MEDS: cefTRIAXone SODIUM 1 GM in SODIUM CHL 0.9% 50ML MIN-BAG+ 50 ML IVPB SCH (01:30)
[2016-10-14] MEDS: AZITHROMYCIN IV 500 MG in SODIUM CHLORIDE 0.9% 250ML 250 ML IVPB SCH (02:10)
[2016-10-14] MEDS ORDERED: PANTOPRAZOLE SODIUM TAB 40 MG PO ONE (05:00)
[2016-10-14] MEDS: PANTOPRAZOLE SODIUM TAB 40 MG PO SCH (05:38)
--- NOTE | 2016-10-14 06:40 | RAD ---
Procedure: XR CHEST 2 VIEWS Exam Date: 10/14/2016 Ordering Provider: Meño Morrison NP Clinical Indication: pneumonia Comparison: 10/13/2016 Findings: Cardiomediastinal silhouette is stable. Focal lung consolidation: Stable right perihilar and basilar atelectasis and/or infiltrate. Elevation of the right hemidiaphragm. Left lung is clear. Pleural effusion: Large right pleural effusion. Pneumothorax: None Acute bony or soft tissue abnormality: None Impression: 1. Stable right perihilar and basilar atelectasis and/or infiltrate 2. Large right pleural effusion. Electronically signed by: Aguila Rider MD 10/14/2016 6:39 AM CDT
[2016-10-14] MEDS: URSODIOL 300 MG CAP PO SCH ×3 (07:52→17:15)
[2016-10-14] MEDS: ALBUTEROL SULFATE 2.5 MG/3 ML VIAL NEB SCH ×4 (08:09→19:59)
[2016-10-14] MEDS ORDERED: MEROPENEM 1 GM VIAL IVPB ONE (08:24)
[2016-10-14] MEDS ORDERED: SODIUM CHL 0.9% 50ML MIN-BAG+ 50 ML IVPB ONE (08:24)
[2016-10-14] MEDS: CARBAMAZEPINE 200 MG PO SCH (08:47)
[2016-10-14] MEDS: CITALOPRAM HBR 20 MG TAB PO SCH (08:47)
[2016-10-14] MEDS: TAMSULOSIN 0.4 MG CAP PO SCH (08:48)
[2016-10-14] MEDS: SODIUM CHLORIDE 0.9% (FLUSH) 10 ML SYG IV SCH ×2 (08:48→20:31)
[2016-10-14] MEDS: PROPRANOLOL HCL 20 MG TAB PO SCH ×2 (08:48→20:31)
[2016-10-14] MEDS: FUROSEMIDE INJ 100 MG/10 ML VIAL IV SCH (08:48)
[2016-10-14] MEDS: OLOPATADINE 0.1% OPHTH SOL 1 DROP BOTH_EYES SCH (08:50)
[2016-10-14] MEDS: SODIUM CHLORIDE 0.9% (FLUSH) 10 ML SYG IV PRN ×2 (08:50→10:19)
[2016-10-14] MEDS: SERTRALINE HCL 50 MG TAB PO SCH (08:50)
[2016-10-14] MEDS ORDERED: POTASSIUM CHLORIDE 20 MEQ TAB PO ONE (10:10)
[2016-10-14] MEDS ORDERED: levoFLOXacin 500MG IV 100 ML IVPB ONE (10:12)
[2016-10-14] MEDS: levoFLOXacin 500MG IV 500 MG in PREMIX BAG 1 BAG IVPB SCH (10:19)
--- NOTE | 2016-10-14 18:22 | PN ---
DATE: 10/14/16 SUPERVISING PHYSICIAN: Chaz Zhang M.D. SUBJECTIVE: The patient was responding well with diuresis yesterday, diuresing well over 3 liters. He has had improvement in his lung function and feels much better in regards to his respiratory effort. He has had no nausea or vomiting and he remains afebrile. OBJECTIVE: VITAL SIGNS: T max 98.8, pulse 81, blood pressure 104/65, respirations 16 to 20 with O2 sat showing 90% on room air. I's and O's show a negative balance of 2642 with 1208 in, 3850 out. Weight is 88.4 kg which is down from 89.3 kg. He has had 1 bowel movement today. CHEST: Lungs, right side remains diminished with breath sounds showing some improvement compared to yesterday. Still remains with a slight wheezing on the right side. Left lung essentially clear but somewhat diminished towards the base. HEART: Regular rate and rhythm. ABDOMEN: Remains somewhat distended but lesser than yesterday and is much more soft on palpation. It is non-tender. No rebound tenderness. Positive bowel sounds. EXTREMITIES: No clubbing, cyanosis or edema noted. NEUROLOGIC: He is alert and oriented times three. LABORATORY: White count is at 3.7, hemoglobin 9.7, hematocrit 30.0, platelet count is at 77,000 which is improved from admission of 68,000. Differential does continue to show a left shift with manual differential showing 12% bands. Blood gas analysis yesterday showed a pH of 7.47, PCO2 was 24, PO2 was 69, bicarb 17.4. He is satting 95% on room air. Chemistries today show normal electrolytes. Carbon dioxide is 20, anion gap remains normal. BUN is 12, creatinine is down to 0.52, glucose 89. Total bilirubin continues to show improvement, it is down to 3, calcium 7.8 corrected for an albumin of 2.2 shows to be 9.2. Liver enzymes show continuation of his elevation of ALT, AST and alkaline phosphatase compared to previous days. AST 172, ALT 122, alkaline phosphatase 149, albumin 2.2. Blood cultures today are finalized for sensitivity report showing Klebsiella pneumoniae with sensitivity pattern shown to be sensitive to all but Ampicillin. Sputum culture is pending. RADIOLOGY: Chest x-ray today per radiology interpretation shows a stable right perihilar and basilar atelectasis and infiltrate with a large pleural effusion. ASSESSMENT: 1. Right lower lobe pneumonia community acquired with gram negative bacteremia identified as a Klebsiella pneumoniae with sputum cultures pending with sensitivity pattern showing sensitive to all but Ampicillin with the patient having been on Rocephin, Azithromycin and Meropenem. 2. Metabolic encephalopathy due to sepsis secondary to number 1 and a gram negative bacteremia showing improvement after initiation of antibiotics as noted above as well as IV fluids. 3. Respiratory alkalosis due to increasing right sided pleural effusion secondary to underlying cirrhosis and aggressive fluid resuscitation in efforts to correct sepsis requiring loop diuretic to reestablish fluid balance showing good resolution with diuresis and the patient utilizing BiPAP. 4. Cirrhosis secondary to primary sclerosing cholangitis and primary biliary cholangitis component requiring some ongoing diuresis for fluid balance with the patient showing good response to Lasix. 5. Benign prostatic hypertrophy. PLAN: I discussed the case today with Dr. Abebe after having received the final culture results of the blood cultures. She recommended that we could change the patient to Levaquin for 500 mg every day for 2 days as we monitor and trend his liver enzymes. She noted that if his liver enzymes show a trend of elevation, the he will probably need to go back to Meropenem. He will need at least a 14 day total course of antibiotic therapy for full treatment of the bacteremia. I have stopped her Rocephin and Azithromycin. Sputum culture is still pending. He will get an additional dose of Lasix today at 60 mg as he did respond well and I believe he is still on the positive side with fluid balance. Anticipate hopefully discharging this coming Monday if the patient is able to tolerate Levaquin with stable Liver enzymes and then continue with a total course of 14 day oral therapy. Should he require a change back to Meropenem, certainly will need to make arrangements for a PICC line and continued IV infusions of Meropenem for treatment course. Until then, will continue to monitor the patient closely and keep close contact with Dr. Abebe in regards to the patient's progression and monitor closely. [facility][id number] [facility]
[2016-10-14] MEDS: BIFIDOBACTERIUM INFANTIS 4 MG CAP PO SCH (20:31)
[2016-10-15] MEDS: PANTOPRAZOLE SODIUM TAB 40 MG PO SCH (05:59)
[2016-10-15] MEDS: ALPRAZolam 0.25 MG TAB PO PRN (06:01)
--- NOTE | 2016-10-15 07:01 | RAD ---
Procedure: XR CHEST 2 VIEWS Exam Date: 10/15/2016 Ordering Provider: Meño Morrison NP Clinical Indication: pneumonia rll and large pleural effusion Comparison: 10/14/2016 Findings: Cardiomediastinal silhouette is stable. Focal lung consolidation: Stable right perihilar and basilar atelectasis and/or infiltrate. Elevation of the right hemidiaphragm. Left lung is clear. Pleural effusion: Large right pleural effusion. Pneumothorax: None Acute bony or soft tissue abnormality: None Impression: 1. Stable right perihilar and basilar atelectasis and/or infiltrate 2. Stable large right pleural effusion. Electronically signed by: Aguila Rider MD 10/15/2016 7:00 AM CDT
[2016-10-15] MEDS: TAMSULOSIN 0.4 MG CAP PO SCH (08:18)
[2016-10-15] MEDS: SERTRALINE HCL 50 MG TAB PO SCH (08:18)
[2016-10-15] MEDS: PROPRANOLOL HCL 20 MG TAB PO SCH ×2 (08:18→20:40)
[2016-10-15] MEDS: CITALOPRAM HBR 20 MG TAB PO SCH (08:18)
[2016-10-15] MEDS: URSODIOL 300 MG CAP PO SCH ×3 (08:18→19:06)
[2016-10-15] MEDS: SODIUM CHLORIDE 0.9% (FLUSH) 10 ML SYG IV SCH ×2 (08:18→20:40)
[2016-10-15] MEDS: CARBAMAZEPINE 200 MG PO SCH (08:19)
[2016-10-15] MEDS: OLOPATADINE 0.1% OPHTH SOL 1 DROP BOTH_EYES SCH (08:20)
[2016-10-15] MEDS: ALBUTEROL SULFATE 2.5 MG/3 ML VIAL NEB SCH ×4 (08:27→20:17)
[2016-10-15] MEDS ORDERED: levoFLOXacin 500MG IV 100 ML IVPB ONE (09:37)
[2016-10-15] MEDS: levoFLOXacin 500MG IV 500 MG in PREMIX BAG 1 BAG IVPB SCH (09:40)
[2016-10-15] MEDS ORDERED: PHYTONADIONE INJ 10 MG/ML AMP IM ONE (11:50)
--- NOTE | 2016-10-15 16:47 | CONS ---
HISTORY OF PRESENT ILLNESS: The patient is a 51 year-old male who is known to me as the parent of patient. He was found by a welfare check to be confused and he was admitted, found to have pneumonia along with underlying end-stage liver disease. His pneumonia has been treated, he has been diuresed and is doing extremely well and has been afebrile for some time. However, he does have a large pleural effusion on the right side. The patient denies shortness of breath or cough at this time. PAST MEDICAL HISTORY/PAST SURGICAL HISTORY: 1. Significant for sclerosing cholangitis and ulcerative colitis. 2. Status post banding of esophageal varices. 3. Gastroesophageal reflux disease. 4. Benign prostatic hypertrophy. 5. Status post cholecystectomy. 6. Status post tonsillectomy. 7. Removal of a laryngeal cord nodule. 8. Multiple prostate biopsies. 9. Liver biopsies. 10. Colonoscopies. 11. Esophagogastroduodenoscopy. CURRENT MEDICATIONS: As noted in the chart. ALLERGIES: AMPICILLIN FAMILY HISTORY: Positive for lymphoma in father and depression. He is also said to have a brother who has sclerosing cholangitis. SOCIAL HISTORY: He lives in [place]. 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 He is a nonsmoker and no history of alcohol use. He is . REVIEW OF SYSTEMS: Unremarkable other than abdominal distention and tenderness with diarrhea. No productive cough or chest pain. No previous history of confusion. PHYSICAL EXAMINATION: VITAL SIGNS: Currently afebrile and normotensive. HEENT: Sclera muddied. Mucous membranes are moist. NECK: Without adenopathy. BACK: Without CVA tenderness. CHEST: He has clear breath sounds in the upper chest. The right lung base is dull to percussion and breath sounds are quite minimal. Chest x-ray this morning revealed a stable atelectasis on the right and a large right pleural effusion. LABORATORY: Today revealed a potassium of 3.7, creatinine 0.45, bilirubin 2.6, AST, ALT and alkaline phosphatase all elevated. Calcium is 7.9 and albumin 2.1. White count 3.2,000, hemoglobin 9.1. Platelet count is decreased at 78, 000, he has a normal differential. PT three days ago was 18.7 and INR 1.6. PTT 31.3. IMPRESSION: 1. Right pleural effusion status post treatment for pneumonia. 2. Biliary sclerosing cholangitis. 3. Ulcerative colitis. PLAN: Obtain an ultrasound of the chest to identify size of the effusion, depth of the effusion and the ability to safely perform thoracentesis. Also give vitamin K and recheck his PT/INR and follow his platelet count. #[id number] [facility]
[2016-10-15] MEDS: BIFIDOBACTERIUM INFANTIS 4 MG CAP PO SCH (20:40)
[2016-10-16] MEDS: PANTOPRAZOLE SODIUM TAB 40 MG PO SCH (06:17)
--- NOTE | 2016-10-16 07:10 | RAD ---
Procedure: XR CHEST LATERAL, DECUBITUS, OR LIVE Exam Date: 10/16/2016 Ordering Provider: Meño Morrison NP Clinical Indication: large rt pleural effusion Comparison: 10/15/2016 Findings: Cardiomediastinal silhouette is stable. Focal lung consolidation: Right perihilar and basilar atelectasis and/or infiltrate. Left lung is clear. Pleural effusion: Large right pleural effusion. No appreciable left pleural effusion. Pneumothorax: None Acute bony or soft tissue abnormality: None Impression: 1. Right perihilar and basilar atelectasis and/or infiltrate 2. Large right pleural effusion. Electronically signed by: Aguila Rider MD 10/16/2016 7:09 AM CDT
[2016-10-16] MEDS: URSODIOL 300 MG CAP PO SCH ×3 (07:55→17:37)
[2016-10-16] MEDS: ALBUTEROL SULFATE 2.5 MG/3 ML VIAL NEB SCH ×4 (08:47→19:38)
--- NOTE | 2016-10-16 09:44 | PN ---
DATE: 10-15-16 SUPERVISING PHYSICIAN: Chaz Zhang MD SUBJECTIVE: The patient continues to show improvement. He still is having good diuresis the last 2 days with the Lasix, well over 5 to 6 liters. His breathing has lessened, although he still remains short of breath. He remains afebrile. He is tolerating Levaquin well. OBJECTIVE: VITAL SIGNS: Temperature 97.5, pulse 79, blood pressure 104/67, respirations 18 , saturation 98% o room air. I&O show negative balance of 3270 with 1680 in, 4950 out, weight is down to 86.1 kg which is down from admission of 89.3 kg. He has had a couple of bowel movements today. CHEST: Lungs are essentially clear to auscultation, just greatly diminished on the right compared to the left. HEART: Regular rate and rhythm. ABDOMEN: Distended but soft, non-tender, with positive bowel sounds. EXTREMITIES: No cyanosis, clubbing, or edema. NEUROLOGIC: He is alert and oriented x 3. LABORATORY: CBC has shown a decrease to 3.2, hemoglobin down to 9.1, hematocrit 27.7, platelet count is improving, is at 78,000 with differential now showing without a left shift. Chemistries showed normal electrolytes with BUN 11, creatinine 0.45. Carbon dioxide is down to 21 now. Glucose 90, bilirubin has improved to 2.6 compared to a maximum on admission of 4.5. Liver functions are showing to be fairly stable with AST being 171, ALT 132, alkaline phosphatase 156. Serum albumin 2.1. MICROBIOLOGY: All blood cultures showed Klebsiella pneumonia sensitive all but ampicillin with the patient having been on Meropenem and transitioned to Levaquin. Sputum cultures remained with having budding yeast. RADIOLOGY: Chest x-ray today per radiology interpretation 2 view, shows stable right pleural and basilar atelectasis and/or infiltrate with a stable right pleural effusion. ASSESSMENT: 1. Right lower lobe pneumonia community acquired with gram negative Klebsiella pneumonia bacteremia with sputum cultures yeast with sensitivity pattern showing to be sensitive to all but Ampicillin with the patient having been on Rocephin, Azithromycin and Meropenem and now transitioned to Levaquin. 2. Metabolic encephalopathy on admission due to sepsis secondary to number 1 and a gram negative bacteremia with a Klebsiella species resolving now after initiation of antibiotics and aggressive IV fluids management. 3. Respiratory alkalosis on admission due to increasing right sided pleural effusion secondary to underlying cirrhosis and aggressive fluid resuscitation in efforts to correct sepsis responding well to loop diuretics, however, remains with a large pleural effusion noted on radiographic studies with consultation with Dr. Hairston pending for possible thoracentesis to assist with symptomatic relief of shortness of breath. 4. 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 5. Benign prostatic hypertrophy. PLAN: I did talk with Dr. Hairston today in regards to the pleural effusion. He has agreed to see the patient in consultation for possible thoracentesis. We will go ahead and do an ultrasound when the ultrasound is available for marking purposes as well as in the morning an x-ray with a lateral and decubitus of the chest to further characterize the pleural effusion. He will remain on Levaquin today. Will repeat his liver functions tomorrow. Should they show to be stable , certainly after discussing the case with Dr. Anna, the patient could be discharged once clinically stable to continue with Levaquin for a total treatment course of 2 to 3 weeks. Should he show elevation of liver enzymes, recommendations per Dr. Anna to just go back to meropenem for continuation of treatment course. Certainly, if he does go to meropenem he will need a PICC- line placement. Will hopefully be able to discharge Monday or Monday, depending on the findings for the thoracentesis and Dr. Hairston's consultation. The patient continues to show slow clinical improvement and stabilization. Until discharge, we will continue to monitor him closely and treat appropriately #[id number] [facility]
[2016-10-16] MEDS: CARBAMAZEPINE 200 MG PO SCH (09:51)
[2016-10-16] MEDS: PROPRANOLOL HCL 20 MG TAB PO SCH ×2 (09:51→20:50)
[2016-10-16] MEDS: SERTRALINE HCL 50 MG TAB PO SCH (09:51)
[2016-10-16] MEDS: TAMSULOSIN 0.4 MG CAP PO SCH (09:51)
[2016-10-16] MEDS: CITALOPRAM HBR 20 MG TAB PO SCH (09:51)
[2016-10-16] MEDS: SODIUM CHLORIDE 0.9% (FLUSH) 10 ML SYG IV SCH ×2 (09:52→20:50)
[2016-10-16] MEDS: OLOPATADINE 0.1% OPHTH SOL 1 DROP BOTH_EYES SCH (09:52)
[2016-10-16] MEDS ORDERED: levoFLOXacin 500MG IV 100 ML IVPB ONE (12:01)
[2016-10-16] MEDS: levoFLOXacin 500MG IV 500 MG in PREMIX BAG 1 BAG IVPB SCH (12:16)
--- NOTE | 2016-10-16 12:32 | PN ---
DATE: 10-16-16 SUPERVISING PHYSICIAN: Chaz Zhang MD SUBJECTIVE: The patient is sitting up in his hospital bed. He has just finished his shower. He is also doing his incentive spirometry. He has no complaints of chest pain, shortness of breath or abdominal pain. He does say that he gets slightly short of breath with exertion but it is much improved over the last few days. OBJECTIVE: VITAL SIGNS: He is afebrile. His heart rate is 73, blood pressure 111/69, respiratory rate 18, 02 saturation 97% on room air. CARDIAC: Regular rate and rhythm. CHEST: Essentially clear to auscultation in the apices. He is quite diminished on the right lower lobe and somewhat diminished on the left lower lobe. ABDOMEN: Soft, slightly distended, non-tender. Bowel sounds are positive. EXTREMITIES: No cyanosis, clubbing, or edema. NEUROLOGICAL: He is awake, alert, and oriented x3. LABORATORY: WBC 3, hemoglobin 8.9, hematocrit 27.5. Platelet count 88,000. PT is 14.1 with INR of 1.25. Electrolytes are basically within normal limits with a total bilirubin that has improved to 2.5. His AST is 157, ALT 134, alkaline phosphatase 173, albumin 2.1, globulin 4.3. Chest x-ray shows right perihilar and basilar atelectasis and/or infiltrate with a large right pleural effusion. All other labs and films have been reviewed via the EMR. IMPRESSION: 1. Right lower lobe pneumonia community acquired with gram negative Klebsiella pneumonia bacteremia with sputum cultures yeast with sensitivity pattern showing to be sensitive to all but Ampicillin with the patient having been on Rocephin, Azithromycin and Meropenem and now transitioned to Levaquin. 2. Metabolic encephalopathy on admission due to sepsis secondary to number 1 and a gram negative bacteremia with a Klebsiella species resolving now after initiation of antibiotics and aggressive IV fluids management. 3. Respiratory alkalosis on admission due to increasing right sided pleural effusion secondary to underlying cirrhosis. Improving. 4. Large right pleural effusion noted on radiographic studies with consultation with Dr. Hairston pending for possible thoracentesis to assist with symptomatic relief of shortness of breath. 5. 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 6. Benign prostatic hypertrophy. 7. Primary sclerosing cholangitis. PLAN: We will known to present supportive care. I spoke with Dr. Hairston today and he will be waiting on the ultrasound for possible thoracentesis. We will continue him on Levaquin at this time and repeat his lab in the morning> If his liver enzymes remain stable he can remain on Levaquin and will be sent home on p.o. Levaquin. Otherwise, he will need a PICC line to do IV antibiotics. I will contact Dr. Abebe tomorrow with an update. I have also ordered physical therapy for tomorrow and we will continue to monitor him closely and followup as needed. Dr. Zhang is the collaborating physician and available for consultation. #[id number] [facility]
[2016-10-16] MEDS: BIFIDOBACTERIUM INFANTIS 4 MG CAP PO SCH (20:50)
[2016-10-17] MEDS: PANTOPRAZOLE SODIUM TAB 40 MG PO SCH (07:12)
[2016-10-17] MEDS: ALBUTEROL SULFATE 2.5 MG/3 ML VIAL NEB SCH ×4 (08:45→20:50)
[2016-10-17] MEDS: SERTRALINE HCL 50 MG TAB PO SCH (09:04)
[2016-10-17] MEDS: TAMSULOSIN 0.4 MG CAP PO SCH (09:04)
[2016-10-17] MEDS: PROPRANOLOL HCL 20 MG TAB PO SCH ×2 (09:04→21:46)
[2016-10-17] MEDS: URSODIOL 300 MG CAP PO SCH ×3 (09:04→16:55)
[2016-10-17] MEDS: CITALOPRAM HBR 20 MG TAB PO SCH (09:04)
[2016-10-17] MEDS: CARBAMAZEPINE 200 MG PO SCH (09:05)
[2016-10-17] MEDS: SODIUM CHLORIDE 0.9% (FLUSH) 10 ML SYG IV SCH ×2 (09:05→21:46)
[2016-10-17] MEDS: OLOPATADINE 0.1% OPHTH SOL 1 DROP BOTH_EYES SCH (09:06)
[2016-10-17] MEDS ORDERED: levoFLOXacin 500MG IV 100 ML IVPB ONE (10:59)
[2016-10-17] MEDS: levoFLOXacin 500MG IV 500 MG in PREMIX BAG 1 BAG IVPB SCH (11:10)
--- NOTE | 2016-10-17 13:43 | RAD ---
EXAM DESCRIPTION: Chest,1 View CLINICAL HISTORY: fu thoracentesis COMPARISON: October 16, 2016 IMPRESSION: Single AP portable upright view of the chest shows cardiac silhouette and pulmonary vasculature to be within normal limits. There has been interval significant reduction in size of the large right pleural effusion seen on previous examinations status post thoracentesis. No pneumothorax is seen. Persistent at least [id number] size right pleural effusion is seen with increased density in the lung parenchyma that could represent atelectasis versus pneumonia. Electronically signed by: Guzman Davila MD 10/17/2016 1:42 PM CDT
[2016-10-17] MEDS ORDERED: traMADol HCL 50 MG TAB PO PRN ×2 (14:10→19:00)
--- NOTE | 2016-10-17 14:17 | OP ---
DATE OF PROCEDURE: 10/17/16 PROCEDURE: Thoracentesis. SURGEON: Brandon Hairston MD ANESTHESIA: INDICATION: The patient is a 51-year-old male who was admitted with pneumonia. He has endstage liver disease secondary to sclerosing cholangitis with cirrhosis. He was also found to have a right pleural effusion. He has responded well to the antibiotics and, in fact, his liver labs are all better and his platelet count is over 100,000 for the first time since he was admitted. We discussed the risks, benefits and alternatives to a thoracentesis since the patient did have significant atelectasis in the right lung base and we have brought ultrasound to the bedside and marked his chest posteriorly for thoracentesis. FINDINGS: 1750 mL of straw-colored fluid were obtained and sent for cytology, culture, and cell count. PROCEDURE: The patient is set at the side of the bed with his arms elevated over the bedside table. He was examined with ultrasound and the place was marked, which was 1.7 cm from the skin and approximately 6+ cm deep. His back was prepped and then draped. Local infiltration of anesthesia was obtained with 1% lidocaine. A 22-gauge needle was walked over the rib, introduced into the pleural space and fluid was obtained. At this point, a stab wound was made with an 11 blade and, again, the thoracentesis needle was walked over the rib and introduced into the chest. The catheter was advanced and the needle was withdrawn. It was connected to a three-way stopcock and 120 mL of fluid were easily obtained and sent for cell count, culture. It was then connected to a vacuum bottle and another liter of fluid was obtained, then connected back to the three-way stopcock and the remaining fluid was removed using the 60 mL syringe. The patient tolerated the procedure well. The catheter was removed. Pressure was held over the stab wound until hemostasis was adequate. A sterile pressure dressing was then applied. The patient tolerated the procedure well. Estimated blood loss was less than 5 mL. A stat portable chest x-ray was ordered. #[id number] [facility]
--- NOTE | 2016-10-17 14:45 | PN ---
SUPERVISING PHYSICIAN: DATE: 10/17/16 SUBJECTIVE: The patient is sitting up in his chair in his hospital room eating his lunch. He just completed having a thoracentesis done per Dr. Hairston. He complains of some mild shortness of breath and pain with breathing, but has improved daily. I have encouraged him to ask for pain medications to assist with his coughing and deep breathing. OBJECTIVE: VITAL SIGNS: Temperature 97.4. Heart rate 69. Blood pressure 92/ 55. Respiratory rate 18. O2 saturation 96% on room air. Pleural fluid drained 1750ml. LUNGS: Diminished at the bases, especially on the right side. Otherwise, essentially clear to auscultation in the apices. CARDIAC: Regular rate and rhythm. ABDOMEN: Slightly firm, nondistended. Bowel sounds are positive. EXTREMITIES: No cyanosis, clubbing or edema. NEUROLOGIC: Awake, alert and oriented times three. LABORATORY: WBC 3.1, hemoglobin 9, hematocrit 27.9, platelet count 102. Electrolytes are basically within normal limits. Bilirubin is down to 2.3. Liver enzymes have improved yesterday with the exception of mild elevation in his alkaline phosphatase which went from 173 to 198. All other labs and films have been reviewed via the EMR. ASSESSMENT: 1. Right lower lobe pneumonia, community acquired, with gram negative Klebsiella pneumoniae bacteremia with sputum cultures yeast and sensitivity pattern showing to be sensitive Levaquin. 2. Metabolic encephalopathy on admission due to sepsis secondary to #1, resolving with antibiotic therapy and aggressive IV fluids management. 3. Respiratory alkalosis on admission due to increasing right sided pleural effusion secondary to underlying cirrhosis, improved. 4. Right pleural effusion status post thoracentesis per Dr. Hairston, general surgeon. 5. 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 6. Benign prostatic hypertrophy. PLAN: We will continue present supportive care. I have ordered a two view chest for in the morning as well as to continue monitoring his lab including his liver functions. We will continue on his Levaquin if his liver function continues to be stable. I will call Dr. Abebe tomorrow to touch base with her about his progress. Will also call Dr. Birch, his operator engineer, to get follow up appointment. He is to continue with physical therapy as well as I have encouraged good pulmonary hygiene with incentive spirometry. I have encouraged him to ask for his pain medications and not to let his pain get out of control for good pulmonary expansion. Otherwise, we will continue to monitor the patient closely and followup as needed. Dr. Khan is the collaborating physician and available for consultation. #[id number] [facility]
--- NOTE | 2016-10-17 20:11 | PCM.CORE ---
Physician DVT/VTE - Contraindications Medication Contraindication: Medical Contraindication - Nurse DVT Assessment & Total Each Risk Factor Represents 3 Points: Medical PT with Hx of NV, CHF, Severe infection/sepsis Each Risk Factor Represents 1 Point: Age 41-60 Each Risk Factor is 1 Point: Hx of Inflammatory Bowel Disease DVT Assessment Score: 5 - 5 or more Very High Risk Treatments: Early Ambulation *
[2016-10-17] MEDS: BIFIDOBACTERIUM INFANTIS 4 MG CAP PO SCH (21:46)
[2016-10-18] MEDS: PANTOPRAZOLE SODIUM TAB 40 MG PO SCH (06:56)
--- NOTE | 2016-10-18 07:06 | RAD ---
EXAM: Two view chest. INDICATION: Pleural effusion. COMPARISON: Chest x-ray: 10/17/2016. FINDINGS: There is a right basilar airspace opacity with right pleural effusion. The heart is normal in size. There is no pneumothorax. The bones are unchanged. IMPRESSION: Right basilar airspace opacity with right pleural effusion Electronically signed by: Yoshi Caballero MD 10/18/2016 7:05 AM CDT Workstation: [id number]
[2016-10-18] MEDS ORDERED: SPIRONOLACTONE 25 MG TAB ONE (08:20)
[2016-10-18] MEDS: TAMSULOSIN 0.4 MG CAP PO SCH (08:44)
[2016-10-18] MEDS: SODIUM CHLORIDE 0.9% (FLUSH) 10 ML SYG IV SCH ×2 (08:44→20:24)
[2016-10-18] MEDS: OLOPATADINE 0.1% OPHTH SOL 1 DROP BOTH_EYES SCH (08:44)
[2016-10-18] MEDS: PROPRANOLOL HCL 20 MG TAB PO SCH ×2 (08:44→21:45)
[2016-10-18] MEDS: SERTRALINE HCL 50 MG TAB PO SCH (08:44)
[2016-10-18] MEDS: CITALOPRAM HBR 20 MG TAB PO SCH (08:44)
[2016-10-18] MEDS: SPIRONOLACTONE 25 MG TAB PO SCH (08:44)
[2016-10-18] MEDS: URSODIOL 300 MG CAP PO SCH ×3 (08:44→17:31)
[2016-10-18] MEDS: CARBAMAZEPINE 200 MG PO SCH ×2 (08:45→13:33)
[2016-10-18] MEDS: ALBUTEROL SULFATE 2.5 MG/3 ML VIAL NEB SCH ×4 (08:54→20:10)
[2016-10-18] MEDS ORDERED: levoFLOXacin 500MG IV 100 ML IVPB ONE (09:56)
[2016-10-18] MEDS: levoFLOXacin 500MG IV 500 MG in PREMIX BAG 1 BAG IVPB SCH (10:09)
--- NOTE | 2016-10-18 13:09 | US ---
EXAM DESCRIPTION: Thoracentesis, ultrasound-guided. CLINICAL HISTORY: right pleural effusion COMPARISON: Decubitus chest x-ray 10/16/2016. TECHNIQUE: The procedure was performed by Dr. Hairston. Patient supine on scanning table. Gato written on posterior right thoracic skin for placement of catheter, based on ultrasound findings. FINDINGS: Large right pleural fluid collection posteriorly. Distance from skin to pleural space measures 1.87 cm. IMPRESSION: Gato placed on the posterior right thoracic skin, after localization of right pleural fluid by ultrasound, for thoracentesis to be performed subsequently by Dr. Wagner. Electronically signed by: Gato Stern MD 10/18/2016 1:07 PM CDT Workstation: [id number]
--- NOTE | 2016-10-18 16:35 | PN ---
DATE: 10-18-16 SUPERVISING PHYSICIAN: Rah Khan MD SUBJECTIVE: The patient is sitting up in his recliner in his hospital room. He feels much better than he has in the previous days. He denies any shortness of breath, nausea or vomiting or diarrhea. He has had no issues from his thoracentesis yesterday. OBJECTIVE: VITAL SIGNS: He is afebrile. Heart rate 66, blood pressure 108/69, respiratory rate 18, 02 saturation 96% on room air. CHEST: Essentially clear to auscultation bilaterally but diminished at the bases. CARDIAC: Regular rate and rhythm. GI: Abdomen is rounded, it is slightly firm, non-tender. Bowel sounds are positive. EXTREMITIES: No cyanosis, clubbing, or edema. NEUROLOGICAL He is awake, alert, and oriented x3. LABORATORY: WBC has slightly increased to 3.3, hemoglobin and hematocrit are stable at 9.3 and 29.0. Platelet count is up to 115,000. Electrolytes are basically within normal limits with his bilirubin down slightly to 2.2. Calcium 8. Liver enzymes are improved with an AST of 97, ALT 102, alkaline phosphatase 198. Ammonia is 6.1, albumin 2, globulin 4.1. Chest x-ray per radiology interpretation shows there are basilar opacities due to the right pleural effusion. All other labs and films are reviewed per the EMR. ASSESSMENT: 1. Right lower lobe pneumonia, community acquired, with gram negative Klebsiella pneumoniae bacteremia with sputum cultures yeast and sensitivity pattern showing to be sensitive Levaquin. 2. Metabolic encephalopathy on admission due to sepsis secondary to #1, resolving with antibiotic therapy and aggressive IV fluids management. 3. Respiratory alkalosis on admission due to increasing right sided pleural effusion secondary to underlying cirrhosis, improved. 4. Right pleural effusion status post thoracentesis per Dr. Hairston, general surgeon. 5. 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 6. Benign prostatic hypertrophy. PLAN: We will continue present supportive care. I have spoken to Dr. Birch and he would like to see him as an outpatient tomorrow after he is discharged from the hospital. I also contacted Dr. Abebe and she agreed he should continue with the Levaquin for 14 total days of therapy and she will see him, if needed as an outpatient. I will repeat his labs in the morning and send all of those to Dr. Birch' office. He has also been started on a low dose of spironolactone. He will have a followup with Dr. Zhang after discharge. Chest x-ray will be repeated in the morning. We will continue to monitor closely and follow as needed. Dr. Khan is the collaborating physician and available for consultation. [facility][id number] [facility]
[2016-10-18] MEDS: BIFIDOBACTERIUM INFANTIS 4 MG CAP PO SCH (20:24)
[2016-10-19] MEDS: PANTOPRAZOLE SODIUM TAB 40 MG PO SCH (07:49)
[2016-10-19] MEDS: ALBUTEROL SULFATE 2.5 MG/3 ML VIAL NEB SCH (08:50)
[2016-10-19] MEDS ORDERED: OBETICHOLIC ACID 5 MG PO SCH (09:00)
[2016-10-19] MEDS: SERTRALINE HCL 50 MG TAB PO SCH (09:20)
[2016-10-19] MEDS: PROPRANOLOL HCL 20 MG TAB PO SCH (09:20)
[2016-10-19] MEDS: SPIRONOLACTONE 25 MG TAB PO SCH (09:20)
[2016-10-19] MEDS: URSODIOL 300 MG CAP PO SCH (09:20)
[2016-10-19] MEDS: TAMSULOSIN 0.4 MG CAP PO SCH (09:20)
[2016-10-19] MEDS: CITALOPRAM HBR 20 MG TAB PO SCH (09:20)
[2016-10-19] MEDS: CARBAMAZEPINE 200 MG PO SCH (09:20)
[2016-10-19] MEDS: OLOPATADINE 0.1% OPHTH SOL 1 DROP BOTH_EYES SCH (09:21)
[2016-10-19] MEDS: SODIUM CHLORIDE 0.9% (FLUSH) 10 ML SYG IV SCH (09:22)
[2016-10-19] MEDS ORDERED: levoFLOXacin 500 MG TAB PO ONE (10:51)
[2016-10-19] MEDS ORDERED: levoFLOXacin 500 MG TAB ONE (11:00)
[2016-10-19 12:59] VITALS: BP 124/61; TEMP 97; O2SAT 98
--- NOTE | 2016-10-20 08:37 | DS ---
SUPERVISING PHYSICIAN: Rah Khan MD DISCHARGE DIAGNOSIS: 1. Right lower lobe pneumonia, community acquired, with gram negative Klebsiella pneumoniae bacterium with sputum cultures yeast and sensitivity pattern showing to be sensitive Levaquin. 2. Metabolic encephalopathy on admission due #1, resolved with antibiotic therapy and aggressive IV fluids. 3. Respiratory alkalosis on admission due to increasing right sided pleural effusion secondary to underlying cirrhosis, improved. 4. Right pleural effusion status post thoracentesis per Dr. Hairston, general surgeon, with pleural cytology and cultures pending. 5. 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 6. Benign prostatic hypertrophy. HISTORY OF PRESENT ILLNESS: This is a 51-year-old male patient who was brought to the Emergency Department via EMS. The patient was found to be confused at home after his mother had called and could not reach the patient as she was out of town. Upon arrival, the ambulance personnel found him to be very confused and short of breath . He was transported to the Emergency Room where he was noted to have an elevated temperature of 102.2. He had had some diarrhea in the previous several days. Laboratory studies in the Emergency Department showed that he had normal white count of 10.3 with a notable left shift. Radiographic studies included a chest x-ray and per radiologic interpretation showed right basilar airspace opacity with pleural effusion. He also had a CT of the head for evaluation of his confusion and per radiologic interpretation there was no CT evidence of acute intracranial hemorrhage. 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 Chemistries in the Emergency Department showed his total bilirubin t be 4.5, lactic acid was 2.4. They attempted to transfer the patient to [facility] as the patient is followed by Dr. Birch, but they had no beds available, so he was admitted to the hospital until a bed was available. Blood cultures were collected. He was started on Rocephin and azithromycin. He was admitted to the Floor. HOSPITAL COURSE: Blood cultures were positive for Klebsiella pneumoniae. Dr. Hairston was consulted due to the large right pleural effusion. Over the course of his stay, his WBCs dropped from initially being 10.3 down to 3.1. Today, it is 3.3. Hemoglobin remained fairly stable between 9.3 to 10.3. His neutrophils today are 57.3 and initially had been 90.7%. He also had an elevated of 18.7 and was given some vitamin K. Dr. Hairston monitored the patient's condition and decided to do a thoracentesis on Monday and he had approximately 1,750 mL of pleural fluid drained and his chest x-ray continued to have a mild to moderate pleural effusion post thoracentesis. Dr. Starks saw the patient in the hospital on the date of admission and agreed to the present treatment for pneumonia and felt he was stable from a liver standpoint during his admission. He was to continue on his present medications until he could followup with his disulfurizer tender, Dr. Galaviz in [place], and also to keep his followup with Dr. Birch. His antibiotics have been changed several times from Rocephin and azithromycin to meropenem. There was sensitivity also to Levaquin and Dr. Abebe was contacted and she felt if the patient could take Levaquin without any worsening of his liver functions, he could stay on the Levaquin and be discharged on it for 14 days total. His liver function tests remained stable while he was on the Levaquin therapy. He had no further complaints of shortness of breath or abdominal pain or confusion during his hospital stay and at this point has stabilized and can be discharged home. DISCHARGE PLAN: The patient will be discharged home in stable condition. He is to resume his previous diet and increase his activity as tolerated. He will be discharged and then he has an appointment post discharge at Dr. Birch' office here at [facility] today. He will have an EGD per Dr. Birch next week. He has a followup appointment with Dr. Zhang on 10/24/16 at 2: 30 PM. He is to return to the hospital or call Dr. Zhang' office or Dr. Birch' office for any further problems. DISCHARGE MEDICATIONS: 1. Pataday drops. 2. Ursodiol. 3. Tamsulosin. 4. Tramadol. 5. Citalopram. 6. Ocaliva. 7. Propranolol. 8. Pantoprazole. 9. Sertraline. 10. Carbamazepine. 11. Tessalon Perles. 12. Align. 13. Guaifenesin. 14. Levaquin. 15. Spironolactone. Dr. Khan is the collaborating physician and available for consultation. #[id number] [facility]
== END 2016-10-19 11:25 | disposition home or self-care (01) | DRG 871 ==
LOC: ER 00:29 → UNDOADMIN 03:53 → MS 03:53
PROVIDERS: ADMIT Nurse Practitioner Family; ATTEND Nurse Practitioner Acute Care
PROC: 0W993ZZ Drainage of Right Pleural Cavity, Percutaneous Approach (ICD-10-PCS; principal; 2016-10-17)
DX: A41.59 Other Gram-negative sepsis (principal); A40.3 Sepsis due to Streptococcus pneumoniae; R65.21 Severe sepsis with septic shock; J15.0 Pneumonia due to Klebsiella pneumoniae; G93.41 Metabolic encephalopathy; J91.8 Pleural effusion in other conditions classified elsewhere; E87.3 Alkalosis; K83.0 Cholangitis; K51.90 Ulcerative colitis, unspecified, without complications; K76.6 Portal hypertension; K21.9 Gastro-esophageal reflux disease without esophagitis; N40.0 Benign prostatic hyperplasia without lower urinary tract symptoms; K74.60 Unspecified cirrhosis of liver; F31.9 Bipolar disorder, unspecified; Z79.899 Other long term (current) drug therapy; Z88.0 Allergy status to penicillin; Z79.52 Long term (current) use of systemic steroids

== ENCOUNTER → 2016-11-08 | Outpatient (CLI) | payer BC | END | disposition home or self-care (01) | LOC: GMAJ 16:38 | PROVIDERS: ATTEND Family Medicine | DX: K74.69 Other cirrhosis of liver (principal) ==

== ENCOUNTER → 2016-12-22 | Outpatient (CLI) | payer BC | END | disposition home or self-care (01) | LOC: GMAJ 17:01 | PROVIDERS: ATTEND Family Medicine | DX: K83.0 Cholangitis (principal) ==

== ENCOUNTER 2017-05-14 09:45 | Emergency (ER) | payer BC ==
--- NOTE | 2017-05-14 10:17 | ED.PDOC ---
History of Present Illness - General Chief Complaint: GI Problem Stated Complaint: Headache, Difficulty Breathing Time Seen by Provider: 05/14/17 10:02 Source: patient Exam Limitations: no limitations - History of Present Illness Initial Comments: Patient is a 52 year old with non-alcoholic hepatitis who presents with increasing jaundice for 5 days. He had an upper endoscopy 6 days ago to band esophageal varices. Denies history of hepatitis B or C. Has had a normal appetite. He says his stools have had bright red blood for 5 days. He says he does have a history of hemorrhoids. No N/V/D. No hematemesis. No fever. He has had increasing abdominal girth for 5 days that has affected how deep he can take in a breath. No dysuria/anuria/hematuria/nocturia. No diarrhea. Denies abdominal pain. Has had previous episodes of jaundice and has had hepatitis for "years". Is on a transplant waiting list. He also has had a generalized headache that started about 5 days ago. Is aching in nature. No other complaints. Timing/Duration: other - 5 days Severity: moderate Improving Factors: nothing Worsening Factors: nothing Associated Symptoms: headaches Allergies/Adverse Reactions: Allergies Ampicillin Allergy (Verified 05/14/17 10:05) Home Medications: Ambulatory Orders Obeticholic Acid [Ocaliva] 5 mg PO DAILY 03/09/16 Olopatadine HCl [Pataday] 1 drop BOTH_EYES DAILY 03/09/16 Tamsulosin [Flomax] 0.4 mg PO DAILY 03/09/16 Tramadol HCl 1 - 2 mg PO Q12H PRN 03/09/16 Ursodiol 600 mg PO AC 03/09/16 Pantoprazole Tablet [Protonix] 40 mg PO ACBK 04/15/16 Propranolol HCl 20 mg PO BID 04/15/16 Sertraline HCl 50 mg PO DAILY 10/12/16 Ursodiol 300 mg PO BID 05/14/17 Review of Systems - Review of Systems Constitutional: States: no symptoms reported EENTM: States: other - icteric sclera. Respiratory: States: see HPI Gastrointestinal/Abdominal: States: no symptoms reported Genitourinary: States: no symptoms reported Musculoskeletal: States: no symptoms reported Skin: States: see HPI Neurological: States: see HPI Endocrine: States: no symptoms reported Hematologic/Lymphatic: States: no symptoms reported Past Medical History (General) - Patient Medical History Hx Seizures: No Hx Stroke: No Hx Asthma: No Hx of COPD: No Hx Congestive Heart Failure: No Hx Pacemaker: No Hx Hypertension: Yes Hx Diabetes: No Hx Gastroesophageal Reflux: No - PSC with ulcerative colitis ?END STAGE LIVER DZ Hx Renal Disease: Yes Hx MRSA: No - Vaccination History Hx Tetanus, Diphtheria Vaccination: Yes Hx Influenza Vaccination: Yes Hx Pneumococcal Vaccination: Yes - Social History Hx Tobacco Use: No Hx Alcohol Use: No Hx Substance Use: No Hx Substance Use Treatment: No Hx Depression: Yes Hx Physical Abuse: No Hx Emotional Abuse: No - Female History Patient : No Family Medical History - Family History Father Family History: Unknown Living Status: Unknown Hx Family;Other: LYMPHOMA Physical Exam - Physical Exam General Appearance: Alert Eye Exam: bilateral scleral icterus Ears, Nose, Throat: normal ENT inspection Neck: non-tender, full range of motion, supple Respiratory: lungs clear, normal breath sounds Cardiovascular/Chest: normal peripheral pulses, regular rate, rhythm, no edema Gastrointestinal/Abdominal: normal bowel sounds, non tender, soft, distended, hepatomegaly - unable to palpate due to ascites Back Exam: no CVA tenderness Extremity: normal range of motion, non-tender, no pedal edema 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, no motor/sensory deficits, alert, normal mood/affect, oriented x 3 Skin Exam: jaundice Lymphatic: no adenopathy Progress - Progress Progress: 05/14/17 11:17 Laboratory Tests 05/14/17 05/14/17 05/14/17 10:30 10:30 10:30 WBC 8.4 RBC 3.59 L Hgb 10.0 L Hct 30.3 L MCV 84.3 MCH 27.8 MCHC 33.0 RDW 18.9 H Plt Count 82 L MPV 9.4 Absolute Neuts (auto) 6.90 H Absolute Lymphs (auto) 0.40 L Absolute Monos (auto) 0.70 Absolute Eos (auto) 0.40 Absolute Basos (auto) 0.00 Neutrophils % 81.8 H Lymphocytes % 5.4 L Monocytes % 8.0 Eosinophils % 4.4 Basophils % 0.4 Sodium 130 L Potassium 3.3 L Chloride 99 L Carbon Dioxide 25 Anion Gap 9.3 L BUN 15 Creatinine 0.55 L BUN/Creatinine Ratio 27.3 H Random Glucose 75 Serum Osmolality 260.3 L Lactic Acid Calcium 8.2 L Total Bilirubin 7.7 H* AST 127 H ALT 109 H Alkaline Phosphatase 202 H Ammonia 15 Serum Total Protein 7.1 Albumin 1.8 L Globulin 5.3 H Albumin/Globulin Ratio 0.3 L 05/14/17 10:30 WBC RBC Hgb Hct MCV MCH MCHC RDW Plt Count MPV Absolute Neuts (auto) Absolute Lymphs (auto) Absolute Monos (auto) Absolute Eos (auto) Absolute Basos (auto) Neutrophils % Lymphocytes % Monocytes % Eosinophils % Basophils % Sodium Potassium Chloride Carbon Dioxide Anion Gap BUN Creatinine BUN/Creatinine Ratio Random Glucose Serum Osmolality Lactic Acid 2.3 H Calcium Total Bilirubin AST ALT Alkaline Phosphatase Ammonia Serum Total Protein Albumin Globulin Albumin/Globulin Ratio T. bili 7.7. Ammonia 15. I spoke with Dr. Hernandez at [facility] who is in the same group as the patient's GI doctor, Dr. Birch. He suggested that the patient was in decompensated liver disease and agreed to see the patient. [facility] is currently full with a waiting list but Dr. Aram Mora at the . agreed with transfer. Departure - Departure Clinical Impression: Jaundice, Hyperbilirubinemia, Decompensated hepatic cirrhosis Disposition: Transfer to Hospital Condition: Fair Departure Forms: ED Discharge - Pt. Copy, Patient Portal Self Enrollment Diet: other - NPO Activity: as per physical therapy Referrals: Chaz Zhang MD [Primary Care Provider] - 1-2 Weeks Home Medications: Ambulatory Orders Obeticholic Acid [Ocaliva] 5 mg PO DAILY 03/09/16 Olopatadine HCl [Pataday] 1 drop BOTH_EYES DAILY 03/09/16 Tamsulosin [Flomax] 0.4 mg PO DAILY 03/09/16 Tramadol HCl 1 - 2 mg PO Q12H PRN 03/09/16 Ursodiol 600 mg PO AC 03/09/16 Pantoprazole Tablet [Protonix] 40 mg PO ACBK 04/15/16 Propranolol HCl 20 mg PO BID 04/15/16 Sertraline HCl 50 mg PO DAILY 10/12/16 Ursodiol 300 mg PO BID 05/14/17
[2017-05-14] MEDS ORDERED: SODIUM CHLORIDE 0.9% 1000ML 1,000 ML IVS PRN (11:03)
[2017-05-14 11:34] VITALS: BP 116/65; TEMP 98.9
[2017-05-14 11:41] VITALS: O2SAT 99
== END 2017-05-14 11:41 | disposition short-term general hospital (02) ==
LOC: ER 09:45
DX: K72.90 Hepatic failure, unspecified without coma (principal); B19.9 Unspecified viral hepatitis without hepatic coma; E80.6 Other disorders of bilirubin metabolism; I10 Essential (primary) hypertension; Z76.82 Awaiting organ transplant status
CPT/HCPCS: 36415; 80053; 82140; 83605; 85025; J7030

== ENCOUNTER → 2017-05-25 | Outpatient (CLI) | payer BC | LOC: GMAJ 17:26 | PROVIDERS: ATTEND Family Medicine | DX: D63.8 Anemia in other chronic diseases classified elsewhere (principal) ==

== ENCOUNTER 2017-05-29 10:52 | Emergency (ER) | payer BC ==
[2017-05-29 11:10] VITALS: O2SAT 99
--- NOTE | 2017-05-29 11:14 | ED.PDOC ---
History of Present Illness - General Chief Complaint: GI Problem Stated Complaint: sob, abdominal distention Time Seen by Provider: 05/29/17 11:05 Source: patient, RN notes reviewed, Vital Signs reviewed Additional Information: 52 year old white male with known history of non alcoholic cirrhosis presents with increasing shortness of breath last few days he has ascitis that was drained last December he has cough and difficulty breathing he has weight gain of 30 pounds his Liver function has been deteriorating over the past decade - History of Present Illness Timing/Duration: 1 week Severity: moderate Improving Factors: nothing Worsening Factors: nothing Associated Symptoms: denies symptoms Allergies/Adverse Reactions: Allergies Ampicillin Allergy (Verified 05/29/17 11:09) Home Medications: Ambulatory Orders Obeticholic Acid [Ocaliva] 5 mg PO DAILY 03/09/16 Olopatadine HCl [Pataday] 1 drop BOTH_EYES DAILY 03/09/16 Tamsulosin [Flomax] 0.4 mg PO DAILY 03/09/16 Tramadol HCl 1 - 2 mg PO Q12H PRN 03/09/16 Ursodiol 600 mg PO AC 03/09/16 Pantoprazole Tablet [Protonix] 40 mg PO ACBK 04/15/16 Propranolol HCl 20 mg PO BID 04/15/16 Sertraline HCl 50 mg PO DAILY 10/12/16 Ursodiol 300 mg PO BID 05/14/17 Review of Systems - Review of Systems Constitutional: States: fever, weakness EENTM: States: no symptoms reported Respiratory: States: no symptoms reported Cardiology: States: no symptoms reported Gastrointestinal/Abdominal: States: no symptoms reported Genitourinary: States: no symptoms reported Musculoskeletal: States: no symptoms reported Skin: States: no symptoms reported Neurological: States: no symptoms reported Endocrine: States: no symptoms reported Hematologic/Lymphatic: States: no symptoms reported Past Medical History (General) - Patient Medical History Hx Seizures: No Hx Stroke: No Hx Asthma: No Hx of COPD: No Hx Congestive Heart Failure: No Hx Pacemaker: No Hx Hypertension: Yes Hx Diabetes: No Hx Gastroesophageal Reflux: No - PSC with ulcerative colitis ?END STAGE LIVER DZ Hx Renal Disease: Yes Hx MRSA: No - Vaccination History Hx Tetanus, Diphtheria Vaccination: Yes Hx Influenza Vaccination: Yes Hx Pneumococcal Vaccination: Yes - Social History Hx Tobacco Use: No Hx Chewing Tobacco Use: No Hx Alcohol Use: No Hx Substance Use: No Hx Substance Use Treatment: No Hx Depression: Yes Hx Physical Abuse: No Hx Emotional Abuse: No Hx Suspected Abuse: No - Female History Patient : No Family Medical History - Family History Father Family History: Unknown Living Status: Unknown Hx Family;Other: LYMPHOMA Physical Exam - Physical Exam General Appearance: Alert, Other - he is in mild respiratory distress he has moderate ascitis Eye Exam: bilateral normal Ears, Nose, Throat: hearing grossly normal, normal ENT inspection, normal pharynx Neck: non-tender, full range of motion, supple Respiratory: chest non-tender, lungs clear, normal breath sounds, no respiratory distress, no accessory muscle use Cardiovascular/Chest: normal peripheral pulses, regular rate, rhythm, no edema, no gallop, no JVD Peripheral Pulses: radial,right: 2+, radial,left: 2+ Gastrointestinal/Abdominal: normal bowel sounds, non tender, soft, no organomegaly, no pulsatile mass Back Exam: normal inspection, no CVA tenderness, no vertebral tenderness Extremity: normal range of motion, non-tender, normal inspection, no pedal edema , no calf tenderness 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, no motor/sensory deficits, alert, normal mood/affect, oriented x 3 Progress - Progress Progress: 05/29/17 12:16 PT HAS A LARGE RIGHT SIDED PLEURAL EFFUSION HE ALSO HAS A FEVER OF 100.4 HOWEVER HIS OXYGEN SATURATION IS 98% VS STABLE EXCEPT TACHYCARDIA HIS PCP DR ZHANG WAS CONTACTED AND THE DECISION WAS MADE TO TRANSFER TO [place] FOR HIGHER LEVEL OF CARE - Results/Orders Results/Orders: Laboratory Tests 05/29/17 05/29/17 05/29/17 11:19 11:19 11:19 WBC 9.3 RBC 3.35 L Hgb 9.8 L Hct 29.0 L MCV 86.7 MCH 29.2 MCHC 33.6 RDW 20.2 H Plt Count 83 L MPV 8.4 Absolute Neuts (auto) 8.00 H Absolute Lymphs (auto) 0.60 L Absolute Monos (auto) 0.70 Absolute Eos (auto) 0.00 Absolute Basos (auto) 0.00 Neutrophils % 85.3 H Lymphocytes % 6.7 L Monocytes % 7.7 Eosinophils % 0.0 L Basophils % 0.3 PT 20.2 H* INR 1.800 PTT (SP) 30.3 Sodium 130 L Potassium 3.2 L Chloride 99 L Carbon Dioxide 24 Anion Gap 10.2 L BUN 7 Creatinine < 0.40 L BUN/Creatinine Ratio 17.0 Random Glucose 117 H Serum Osmolality 259.8 L Calcium 7.9 L Total Bilirubin 8.1 H* AST 139 H ALT 72 H Alkaline Phosphatase 225 H Serum Total Protein 7.6 Albumin 1.8 L Globulin 5.8 H Albumin/Globulin Ratio 0.3 L Departure - Departure Clinical Impression: Pleural effusion, Cirrhosis of liver not due to alcohol, Cirrhosis of liver with ascites, Gastroenteritis Time of Disposition: 12:19 Disposition: Transfer to Hospital Departure Forms: ED Discharge - Pt. Copy, Patient Portal Self Enrollment Diet: resume usual diet Activity: no exercise Referrals: Chaz Zhang MD [Primary Care Provider] - 1-2 Weeks Home Medications: Ambulatory Orders Obeticholic Acid [Ocaliva] 5 mg PO DAILY 03/09/16 Olopatadine HCl [Pataday] 1 drop BOTH_EYES DAILY 03/09/16 Tamsulosin [Flomax] 0.4 mg PO DAILY 03/09/16 Tramadol HCl 1 - 2 mg PO Q12H PRN 03/09/16 Ursodiol 600 mg PO AC 03/09/16 Pantoprazole Tablet [Protonix] 40 mg PO ACBK 04/15/16 Propranolol HCl 20 mg PO BID 04/15/16 Sertraline HCl 50 mg PO DAILY 10/12/16 Ursodiol 300 mg PO BID 05/14/17 Comments: DR FLORES HOSPITALIST AT [facility] WAS CONTACTED AND HE ACCEPTED THE PATIENT FOR FURTHER MANAGEMENT
--- NOTE | 2017-05-29 11:45 | RAD ---
EXAM DESCRIPTION: Chest,1 View CLINICAL HISTORY: shortness of breath COMPARISON: Chest radiograph dated October 18, 2017 IMPRESSION: Single upright portable frontal view of the chest. Large right-sided pleural effusion with adjacent compressive atelectasis of the mid and lower right lung. Underlying infiltrate cannot be excluded. Minimal blunting of the left costophrenic angle suggestive of trace left-sided pleural effusion. Left cardiac silhouette is within normal limits. Right cardiac silhouette is obscured by right-sided pleural effusion. No pneumothorax. Impression: 1. Large right-sided pleural effusion with adjacent compressive atelectasis of the mid and lower right lung. Underlying infiltrate cannot be excluded. Electronically signed by: Milind Richmond MD 05/29/2017 11:42 AM CDT
[2017-05-29 13:27] VITALS: BP 124/61; TEMP 100.4
== END 2017-05-29 12:50 | disposition short-term general hospital (02) ==
LOC: ER 10:52
DX: J90 Pleural effusion, not elsewhere classified (principal); K74.60 Unspecified cirrhosis of liver; R18.8 Other ascites; K52.9 Noninfective gastroenteritis and colitis, unspecified; I10 Essential (primary) hypertension; R63.5 Abnormal weight gain; N28.9 Disorder of kidney and ureter, unspecified; Z79.899 Other long term (current) drug therapy

== ENCOUNTER → 2017-09-04 | Outpatient (CLI) | payer BC | LOC: GRHH 12:16 | PROVIDERS: ATTEND Internal Medicine Infectious Disease | DX: R78.81 Bacteremia (principal); Z79.2 Long term (current) use of antibiotics; Z51.81 Encounter for therapeutic drug level monitoring ==

== ENCOUNTER → 2017-09-11 | Outpatient (CLI) | payer BC | LOC: GRHH 13:03 | PROVIDERS: ATTEND Internal Medicine Infectious Disease | DX: R78.81 Bacteremia (principal); Z79.2 Long term (current) use of antibiotics; Z51.81 Encounter for therapeutic drug level monitoring ==

== ENCOUNTER → 2017-09-18 | Outpatient (CLI) | payer BC | LOC: GRHH 10:53 | PROVIDERS: ATTEND Internal Medicine Infectious Disease | DX: R78.81 Bacteremia (principal); Z79.2 Long term (current) use of antibiotics; Z51.81 Encounter for therapeutic drug level monitoring ==

== ENCOUNTER → 2017-09-29 | Outpatient (CLI) | payer BC | LOC: LAB.O 14:06 | PROVIDERS: ATTEND Internal Medicine Infectious Disease | DX: R78.81 Bacteremia (principal); K74.69 Other cirrhosis of liver ==

== ENCOUNTER → 2018-01-09 | Outpatient (CLI) | payer BC | LOC: LAB.O 15:22 | PROVIDERS: ATTEND Internal Medicine | DX: K83.01 Primary sclerosing cholangitis (principal) ==

== ENCOUNTER → 2018-04-04 | Outpatient (CLI) | payer BC | LOC: GMAE 14:24 | PROVIDERS: ATTEND Family Medicine | DX: K74.69 Other cirrhosis of liver (principal) ==

== ENCOUNTER → 2018-04-25 | Outpatient (CLI) | payer BC | LOC: GMAJ 10:29 | PROVIDERS: ATTEND Family Medicine | DX: K74.69 Other cirrhosis of liver (principal) ==

== ENCOUNTER → 2018-05-09 | Outpatient (CLI) | payer BC | LOC: GMAJ 10:34 | PROVIDERS: ATTEND Family Medicine | DX: K74.69 Other cirrhosis of liver (principal) ==

== ENCOUNTER → 2018-05-23 | Outpatient (CLI) | payer BC | LOC: GMAJ 12:59 | PROVIDERS: ATTEND Family Medicine | DX: K74.69 Other cirrhosis of liver (principal) ==

== ENCOUNTER → 2018-07-18 | Outpatient (CLI) | payer BC | LOC: GMAJ 10:55 | PROVIDERS: ATTEND Family Medicine | DX: K74.69 Other cirrhosis of liver (principal) ==